=== PATIENT | female | born 1950 | race Caucasian/White ===

== ENCOUNTER → 2020-06-13 10:34 | Outpatient (BNVA) | payer MEDICARE, MEDICAID, SELFPAY | PROVIDERS: PCP Internal Medicine; Visit Provider Orthopaedic Surgery | DX: M17.12 Unilateral primary osteoarthritis, left knee (principal) | CPT/HCPCS: 99202; 99204 ==

== ENCOUNTER 2020-07-25 14:16 | Outpatient (REF) | payer MEDICARE, MEDICAID, SELFPAY ==
[2020-07-25 16:50] LABS: Alanine Aminotransferase 19 U/L (0-31); Alkaline Phosphatase 78 U/L (39-117); Anion Gap 14 (12-20); Aspartate Amino Transferase 23 U/L (5-31); Bilirubin Total 0.9 mg/dL (0.0-1.0); Blood Urea Nitrogen 15 mg/dL (9-16); Calcium 8.9 mg/dL (8.4-10.2); Carbon Dioxide 27 mmol/L (22-29); Chloride 105 mmol/L (96-108); Estimated Glomerular Filt Rate > 60; Glucose Fasting 90 mg/dL (60-99); Potassium 4.6 mmol/l (3.3-5.1); Sodium 141 mmol/L (135-145); Total Protein 7.2 g/dL (6.5-8.0)
== END 2020-07-25 14:17 | disposition home or self-care (01) ==
LOC: HO.HMGCLDS 14:16
PROVIDERS: PCP Internal Medicine; Visit Provider Internal Medicine
DX: E78.9 Disorder of lipoprotein metabolism, unspecified (principal); G56.22 Lesion of ulnar nerve, left upper limb; F41.9 Anxiety disorder, unspecified; E66.09 Other obesity due to excess calories; Z68.32 Body mass index [BMI] 32.0-32.9, adult
CPT/HCPCS: 80053

== ENCOUNTER 2020-08-11 13:00 | Outpatient (RCR) | payer MEDICARE, MEDICAID, SELFPAY ==
--- NOTE | 2020-07-09 12:23 | MHC.PT.EP ---
[facility] [place] [facility] [place] Office [place] Office [address] [phone] F: [phone] F: [phone] F: [phone] F: [phone] Physical Therapy Plan of Care Date of Evaluation: 07/09/20 Date of Surgery: NA Diagnosis: This is a 70 female presenting to skilled PT with a script for unilateral primary OA of L knee Assessment: This is a 70 female presenting to skilled PT with a script for unilateral primary OA of L knee. Her knee has been acting up on and off since the beginning of the year. She does not remember any history of injury to the knee. She has been to ortho who recommended cortisone injection (did not go through with this) and referred to PT. Her pain is located at the anterior aspect of the knee/inferior patella and described as achy and occasional sharpness at times. She reports that she has a hard time with standing too long >10 mins, walking and transfers into standing after sitting for periods of time. Assessment reveals pain of about 2-6/10 with increased use. She demos decreased general L hip and knee ROM, decreased BLE strength and functional tolerance with standing and walking as well as transfers after sitting for prolonged periods. She is a good candidate for skilled PT 2x/wk for 6wks based on functional limitations, pain, age and gross impairments. Frequency and Duration: The patient will be seen 2x/wk for 6wks Short Term Goals: Patient will demo I and compliance with HEP Patient will improve ROM by 5 degs actively Patient will demo proper functional squat without cuing or pain Custodial Goals: Patient will improve LEFs by 5 points Patient will improve pain to no more than 1/10 at the worst Patient will report taking a walk for 10 mins without pain Treatment Plan: Modalities to reduce pain, spasms and effusion. Manual therapy to restore motion and function. Therapeutic exercise to improve strength and flexibility. Neuromuscular re-education for posture and balance. Therapeutic activities to return to functional activities of daily living. Please sign and return to therapist. Thank you for your referral.
--- NOTE | 2020-08-11 14:38 | MHC.PT.DC ---
[facility] [place] Office [place] Office [place] Office [address] [phone] F: [phone] F: [phone] F: [phone] F: [phone] Physical Therapy Discharge Report Diagnosis: This is a 70 female presenting to skilled PT with a script for unilateral primary OA of L knee Date of Surgery: NA Date of Evaluation: 07/09/20 Date of Discharge: Treatments to Date: 9 Cancellations to Date: 0 No Shows to Date: 0 Discharge Status: Discharge Summary: Patient 20 mins late to appointment again. Feeling well and has only occasional mild pain but demos good ROM and strength. At this point she is I in an HEP and ready for DC. She has met her therapy goals. DC to HEP. Electronically signed by: Patito Harmon PT Please sign and return to therapist. Thank you for your referral.
== END 2020-08-21 11:56 | disposition home or self-care (01) ==
LOC: HO.PTCHIC 13:00
PROVIDERS: PCP Internal Medicine; Visit Provider Physician Assistant
DX: M17.12 Unilateral primary osteoarthritis, left knee (principal)
CPT/HCPCS: 97110; 97140; 97161

== ENCOUNTER 2020-10-08 13:09 | Outpatient (REF) | payer MEDICARE, MEDICAID, SELFPAY ==
--- NOTE | 2020-10-08 13:14 | MM_ITS ---
EXAMINATION: MM SCREENING DIGITAL BREAST TOMOSYNTHESIS, BILATERAL CLINICAL INFORMATION: Screening. Asymptomatic. The lifetime risk of breast cancer based on the Tyrer-Cuzick Model is 12%. COMPARISON: Mammography: 10/03/2019, 09/27/2018, 09/06/2017 TECHNIQUE: Digital breast tomosynthesis is performed in both the craniocaudal and mediolateral oblique views along with computer-aided detection (CAD). Synthesized 2D images are generated from the tomosynthesis. Additional right MLO view is provided. FINDINGS: The breasts are almost entirely fatty (ACR BI-RADS breast composition Category a). There are no significant masses, abnormal calcifications, or other abnormalities. Background stromal markings are stable. The axilla and skin contours are unremarkable. MM/MM tomosynthesis screening BI IMPRESSION: No mammographic evidence of malignancy. ASSESSMENT: BI-RADS 1: Negative RECOMMENDATION: Routine annual mammography screening. This patient's information was entered into a reminder system with a target due date for their next mammogram.
== END 2020-10-08 13:10 | disposition home or self-care (01) ==
LOC: HO.MAMMO 13:09
PROVIDERS: PCP Internal Medicine; Visit Provider Internal Medicine
DX: Z12.31 Encounter for screening mammogram for malignant neoplasm of breast (principal)
CPT/HCPCS: 77063; 77067

== ENCOUNTER 2021-01-14 13:57 | Outpatient (REF) | payer MEDICARE, MEDICAID, SELFPAY ==
[2021-01-14 17:00] LABS: Alanine Aminotransferase 12 U/L (0-31); Alkaline Phosphatase 80 U/L (39-117); Anion Gap 15 (12-20); Aspartate Amino Transferase 19 U/L (5-31); Blood Urea Nitrogen 19 mg/dL (9-16); Carbon Dioxide 25 mmol/L (22-29); Chloride 106 mmol/L (96-108); Estimated Glomerular Filt Rate 55; Glucose Random 118 mg/dL (60-115); Potassium 4.1 mmol/L (3.3-5.1); Sodium 142 mmol/L (135-145); Total Protein 6.9 g/dL (6.5-8.0)
== END 2021-01-14 13:58 | disposition home or self-care (01) ==
LOC: HO.HMGCLDS 13:57
PROVIDERS: PCP Internal Medicine; Visit Provider Internal Medicine
DX: E78.9 Disorder of lipoprotein metabolism, unspecified (principal); G56.22 Lesion of ulnar nerve, left upper limb
CPT/HCPCS: 36415; 80053

== ENCOUNTER 2021-03-31 10:15 | Outpatient (REF) | payer MEDICARE, MEDICAID, SELFPAY ==
[2021-04-02 22:15] LABS: HPV mRNA E6/E7 rflx Not Detected (Not Detected)
== END 2021-03-31 10:16 | disposition home or self-care (01) ==
LOC: HO.LAB 10:15
PROVIDERS: PCP Internal Medicine; Visit Provider Advanced Practice Midwife
DX: Z01.419 Encounter for gynecological examination (general) (routine) without abnormal findings (principal); Z11.51 Encounter for screening for human papillomavirus (HPV)
CPT/HCPCS: 87624; 88142

== ENCOUNTER 2021-08-11 10:53 | Outpatient (REF) | payer MEDICARE, MEDICAID, SELFPAY ==
[2021-08-11 14:41] LABS: Alanine Aminotransferase 15 U/L (0-31); Albumin Level 3.9 g/dL (3.5-5.0); Alkaline Phosphatase 78 U/L (39-117); Anion Gap 13 (12-20); Aspartate Amino Transferase 19 U/L (5-31); Bilirubin Direct 0.2 mg/dL (0.0-0.5); Bilirubin Total 0.7 mg/dL (0.0-1.0); Blood Urea Nitrogen 14 mg/dL (9-16); Calcium 9.4 mg/dL (8.4-10.2); Carbon Dioxide 25 mmol/L (22-29); Chloride 106 mmol/L (96-108); Estimated Glomerular Filt Rate 58; Glucose Fasting 109 mg/dL (60-99); Sodium 139 mmol/L (135-145); Total Protein 6.9 g/dL (6.5-8.0)
== END 2021-08-11 10:54 | disposition home or self-care (01) ==
LOC: HO.HMGCLDS 10:53
PROVIDERS: PCP Internal Medicine; Visit Provider Internal Medicine
DX: E78.9 Disorder of lipoprotein metabolism, unspecified (principal); F41.1 Generalized anxiety disorder; G56.22 Lesion of ulnar nerve, left upper limb
CPT/HCPCS: 36415; 80053; 80076; 82248

== ENCOUNTER 2022-01-29 09:15 | Outpatient (REF) | payer MEDICARE, MEDICAID, SELFPAY ==
[2022-01-29 11:45] LABS: Alanine Aminotransferase 14 U/L (0-31); Alkaline Phosphatase 78 U/L (39-117); Anion Gap 11 (12-20); Aspartate Amino Transferase 17 U/L (5-31); Bilirubin Total 0.5 mg/dL (0.0-1.0); Blood Urea Nitrogen 13 mg/dL (9-16); Calcium 9.6 mg/dL (8.4-10.2); Carbon Dioxide 29 mmol/L (22-29); Chloride 104 mmol/L (96-108); Cholesterol 217 mg/dL; Estimated Glomerular Filt Rate 58; Glucose Fasting 107 mg/dL (60-99); HDL Cholesterol 44 mg/dL; LDL Cholesterol Calculated 130 mg/dl; Potassium 4.7 mmol/L (3.3-5.1); Sodium 139 mmol/L (135-145); Triglycerides 218 mg/dL
== END 2022-01-29 09:16 | disposition home or self-care (01) ==
LOC: HO.HMGCLDS 09:15
PROVIDERS: Visit Provider Internal Medicine
DX: E78.9 Disorder of lipoprotein metabolism, unspecified (principal); F41.1 Generalized anxiety disorder; G56.22 Lesion of ulnar nerve, left upper limb; E66.09 Other obesity due to excess calories
CPT/HCPCS: 36415; 80053; 80061

== ENCOUNTER 2022-07-09 13:00 | Outpatient (RCR) | payer MEDICARE, MEDICAID, SELFPAY ==
--- NOTE | 2022-06-02 14:52 | MHC.PT.EP ---
[facility] [place] Office [place] Office [place] Office [address] [phone] F: [phone] F: [phone] F: [phone] F: [phone] Physical Therapy Plan of Care Date of Evaluation: Date of Surgery: none Diagnosis: Left knee OA Assessment: Patient is a 72 year old R handed female who presents with s/s consistent with Left knee OA/pain. She does not work but does take care of grandkids. Patient past medical history is fairly unremarkable. Current impairments include pain, balance, ROM, strength, activity tolerance and functional mobility. Functional limitations include decreased ability to kneel, walk long distances, negotiate stairs and transfer. Patient is motivated with good rehab potential. Skilled PT will address impairments and functional limitations in order to achieve goals. Frequency and Duration: The patient will be seen 2x/week for 4 weeks Short Term Goals: I with HEP - 2 weeks AAROM to 128 - 2 weeks Senior Devops Engineer Goals: AROM 130 - 4 weeks Strength grossly 4+/5 - 4 weeks LEFS improved by 8 pts - 4 weeks SLB > 8 seconds - 4 weeks Treatment Plan: Modalities to reduce pain, spasms and effusion. Manual therapy to restore motion and function. Therapeutic exercise to improve strength and flexibility. Neuromuscular re-education for posture and balance. Therapeutic activities to return to functional activities of daily living. Electronically signed by: Jose Luis Negro, PT Please sign and return to therapist. Thank you for your referral.
--- NOTE | 2022-08-24 11:54 | MHC.PT.DC ---
[facility] [place] Office [place] Office [place] Office [address] [phone] F: [phone] F: [phone] F: [phone] F: [phone] Physical Therapy Discharge Report Diagnosis: Left knee OA Date of Surgery: none Date of Evaluation: 06/02/22 Date of Discharge: 08/24/22 Treatments to Date: 10 Cancellations to Date: No Shows to Date: Discharge Status: Improved Function Independent with HEP Discharge Summary: 07/09/22: pt has been feeling better overall and progressively more I with HEP. We did update issued HEP. AAROM flexion is 129. Strength is 4+/5. SLB > 8 seconds b/l. She is appropriate to d/c to HEP at this time. 07/05/22: pt with little to know pain. she did report a fall on a stair since last visit but after assessment, no cause for concern. d/c to HEP NV. 06/30; Pt needs v/c with exs. Pt reported doing the exs sometimes. 2 v before DC 06/28/22: we added the shuttle today with good response. continue to progress strength as tolerated. 06/23;Pt needs v/c with exs. Pt challenged with balance exs. Knee ROM WNL. 06/17; Pt reported feeling good after exs. Challenged with balance exs NV foam with balance. 06/14/22: pt progressing well each day. minimal ant knee pain on L. otherwise, no adverse reactions as we increased stair height to 8 06/09/22: pt progressing well. increased standing activities today. no adverse reactions. continue to progress as tolerated. 06/07/22: progressed pt with strength and stretching. no adverse reactions. notes compliance with HEP. Patient is a 72 year old R handed female who presents with s/s consistent with Left knee OA/pain. She does not work but does take care of grandkids. Patient past medical history is fairly unremarkable. Current impairments include pain, balance, ROM, strength, activity tolerance and functional mobility. Functional limitations include decreased ability to kneel, walk long distances, negotiate stairs and transfer. Patient is motivated with good rehab potential. Skilled PT will address impairments and functional limitations in order to achieve goals. Electronically signed by: Jose Luis Negro, PT Please sign and return to therapist. Thank you for your referral.
== END 2022-08-24 11:55 | disposition home or self-care (01) ==
LOC: HO.PTCHIC 13:00
PROVIDERS: PCP Internal Medicine; Visit Provider Internal Medicine
DX: M17.12 Unilateral primary osteoarthritis, left knee (principal); M25.511 Pain in right shoulder
CPT/HCPCS: 97110; 97112; 97161; 97530

== ENCOUNTER 2022-11-08 11:07 | Outpatient (REF) | payer MEDICARE, MEDICAID, SELFPAY ==
[2022-11-08 14:16] LABS: MANUAL DIFF FLAG NO
[2022-11-08 14:23] LABS: Basophils Percent Auto 0.3 % (0-2); Eosinophils Absolute Auto 0.2 X10*3/uL (0.0-0.4); Eosinophils Percent Auto 2.3 % (0-4); Hemoglobin 14.8 g/dl (12.0-16.0); Imm Gran Abs Auto 0.04 X10*3/uL (0.00-0.03); Imm Gran Pct Auto 0.4 % (0.0-0.4); Lymphocytes Absolute Auto 2.7 X10*3/uL (1.2-4.9); Lymphocytes Percent Auto 26.6 % (20-40); Mean Corpuscular HGB Conc 32.9 g/dl (31.0-35.0); Mean Corpuscular Hemoglobin 30.9 pg (27.0-33.0); Mean Corpuscular Volume 93.9 fL (80.0-98.0); Mean Platelet Volume 11.1 fL (9.4-12.3); Monocytes Absolute Auto 0.7 X10*3/uL (0.1-1.2); Monocytes Percent Auto 7.2 % (2-11); Neutrophils Absolute Auto 6.4 x10*3/uL (2.0-8.3); Neutrophils Percent Auto 63.2 % (45-73); Platelet Count 276 X10*3/uL (160-400); Red Blood Count 4.79 X10*6/uL (4.20-5.50); Red Cell Distribution Width 12.9 % (11.0-16.0); White Blood Count 10.1 X10*3/uL (4.8-10.8)
[2022-11-08 14:45] LABS: Estimated Average Glucose 123 mg/dL; Hemoglobin A1c % 5.9 %
[2022-11-08 14:57] LABS: Alanine Aminotransferase 17 U/L (0-31); Alkaline Phosphatase 77 U/L (39-117); Anion Gap 10 (12-20); Aspartate Amino Transferase 20 U/L (5-31); Bilirubin Total 0.9 mg/dL (0.0-1.0); Blood Urea Nitrogen 15 mg/dL (9-16); Calcium 9.7 mg/dL (8.4-10.2); Carbon Dioxide 31 mmol/L (22-29); Chloride 105 mmol/L (96-108); Cholesterol 224 mg/dL; Estimated Glomerular Filt Rate > 60; Glucose Fasting 98 mg/dL (60-99); HDL Cholesterol 49 mg/dL; LDL Cholesterol Calculated 139 mg/dl; Potassium 4.5 mmol/L (3.3-5.1); Sodium 141 mmol/L (135-145); Total Protein 6.9 g/dL (6.5-8.0); Triglycerides 181 mg/dL
== END 2022-11-08 11:08 | disposition home or self-care (01) ==
LOC: HO.HMGCLDS 11:07
PROVIDERS: Visit Provider Internal Medicine
DX: E66.09 Other obesity due to excess calories (principal); G56.22 Lesion of ulnar nerve, left upper limb; E78.9 Disorder of lipoprotein metabolism, unspecified; F41.1 Generalized anxiety disorder; R21 Rash and other nonspecific skin eruption; M17.12 Unilateral primary osteoarthritis, left knee; R73.01 Impaired fasting glucose
CPT/HCPCS: 36415; 80053; 80061; 83036; 85025

== ENCOUNTER 2022-12-08 11:22 | Outpatient (REF) | payer MEDICARE, MEDICAID, SELFPAY ==
--- NOTE | ~2022-12-08 | MM_ITS ---
EXAMINATION: MM SCREENING DIGITAL BREAST TOMOSYNTHESIS, BILATERAL CLINICAL INFORMATION: Screening. Asymptomatic. The lifetime risk of breast cancer based on the Tyrer-Cuzick Model is 11%. COMPARISON: Prior mammography exams, most recent 10/08/2020 TECHNIQUE: Digital breast tomosynthesis is performed in both the craniocaudal and mediolateral oblique views along with computer-aided detection (CAD). Synthesized 2D images are generated from the tomosynthesis. Additional left MLO view is provided. FINDINGS: The breasts are almost entirely fatty (ACR BI-RADS breast composition Category a). There are no significant masses, abnormal calcifications, or other abnormalities. No architectural abnormality or developing density or significant change from prior studies. The axilla are unremarkable. Skin contours are smooth. MM/MM tomosynthesis screening BI IMPRESSION: No mammographic evidence of malignancy. ASSESSMENT: BI-RADS 1: Negative RECOMMENDATION: Routine annual mammography screening. This patient's information was entered into a reminder system with a target due date for their next mammogram.
== END 2022-12-08 11:23 | disposition home or self-care (01) ==
LOC: HO.MAMMO 11:22
PROVIDERS: Visit Provider Internal Medicine
DX: Z12.31 Encounter for screening mammogram for malignant neoplasm of breast (principal)
CPT/HCPCS: 77063; 77067

== ENCOUNTER 2023-04-23 11:59 | Outpatient (AMB) | payer MEDICARE, MEDICAID, SELFPAY ==
--- NOTE | 2023-04-23 13:24 | AM.OFFWIN_ITS ---
Intake Vital Signs 04/23/23 13:25 Height 5 ft BP 128/76 Blood Pressure Location Lt brachial Position Sitting Pulse 78 Pulse Source Pulse Oximeter Temp 97.9 F Temp Source Temporal Artery Scan Pulse Oximetry (%) 97 Oxygen Delivery Method Room Air Intake Visit Reasons: EST/cough for around a week Intake Note: pt is here for c/o cough for a week Patient Tobacco Use Status: Never used Tobacco Allergies Penicillins [PENICILLINS] Allergy (Unknown, Verified 04/23/23 13:25) RASH Do you need a note to return to daycare/school/sports/work: No HPI EST/cough for around a week HPI Details Patient is a 72-year-old female comes to the walk-in clinic complaining of a cough for week. She states that she had some postnasal drip, but no fever chills, runny nose, shortness of breath or chest pain, chest congestion, nausea vomiting diarrhea, headache or dizziness, malaise myalgias, or other significant associated symptoms. No reported sick contacts. She did not check for COVID. No underlying immuno compromising issues [facility] Medical History Arthritis of knee, right Hematuria, microscopic Lesion of ulnar nerve, left upper limb Lipid disorder Surgical History H/O section History of elbow surgery Family History Father No problems noted. Mother Diabetes Breast CA Social History Housing: Condominium Alcohol intake: never Patient Tobacco Use Status: Never used Tobacco e-Cigarette/Vaping Use: Never Used service: No Current occupational status: retired Cognitive needs: No Hearing needs: No Vision needs: No Review of Systems Const All systems reviewed & are unremarkable except as noted in HPI and below Physical Exam Vital Signs: Last Vital Signs Temp 97.9 F 04/23/23 13:25 Pulse 78 04/23/23 13:25 BP 128/76 04/23/23 13:25 Pulse Ox 97 04/23/23 13:25 Oxygen Delivery Method Room Air 04/23/23 13:25 Const General: cooperative, comfortable, no acute distress, alert, awake, Physically active and well groomed; No anxious, diaphoretic, ill appearing, intoxicated appearing, poor hygiene or tired appearing Orientation/consciousness: patient oriented x3 Limitations: no limitations HEENT Head: Yes normal to inspection, Yes normocephalic and Yes atraumatic Ears: hearing grossly normal bilaterally, external ears normal, EAC's normal and TM abnormal (Injected right TM) dull, erythematous, with fluid behind the TM and with loss of landmarks Face and sinus: Yes normal facial exam, Yes sinuses nontender and Yes face symmetric Mouth: Normal oral and palatal mucosa present, lip normal and tongue normal Throat: Yes posterior oropharynx normal, No peritonsillar mass, No uvular edema and No cobblestoning Neck Neck: Yes normal visual inspection, Yes no lymphadenopathy, Yes trachea midline, Yes supple and No anterior neck swelling Resp Effort & Inspection: normal respiratory effort, able to speak in complete sentences, no audible wheezes, no cough, no grunting, not labored, no nasal flaring, no retractions and symmetric chest movement Auscultation: clear to auscultation bilaterally, no crackles, no rales, no rhonchi, no wheezes, lung sounds not diminished and No rub present Cardio Rate: regular rate Rhythm: regular rhythm Skin Other: Good color, warm and dry Neuro General: patient oriented x3 Psych Appearance: grossly normal Mental Status: mental status grossly normal Speech and movement: Normal speech and movement present Affect: normal affect Attitude: cooperative Thought process: Normal thought process present Insight: Good insight present (Psych) Judgement: Good judgement present (Psych) Assessment & Plan Assessment & Plan (1) Otitis media: Code(s): H66.90 - Otitis media, unspecified, unspecified ear Qualifiers: Chronicity: acute Laterality: right Otitis media type: suppurative Recurrence: non-recurrent Plan: Patient with right otitis media from likely underlying upper respiratory infection from a virus. Pending rapid COVID testing, no PCR testing available. I wrote her for a course of doxycycline as she is penicillin allergic. She can also trial fluticasone nasal spray to help with the drainage. She should follow up if symptoms persist or worsen Orders: Orders [facility] Covid-19 04/23/23 Z20.822 - Contact with and (suspected) exposure to COVID-19 Medications: New doxycycline hyclate 100 mg PO BID 7 days 14 tabs 0RF Coding Level of Care Code Est Pt Level 4 (92350) Diagnoses Otitis media H66.90 Chronicity: acute Laterality: right Otitis media type: suppurative Recurrence: non-recurrent
[2023-04-23 13:25] VITALS: BP 128/76; PULSE 78; TEMP 36.6; O2SAT 97
== END 2023-04-23 14:27 | disposition home or self-care (01) ==
PROVIDERS: PCP Internal Medicine; Visit Provider Physician Assistant Medical
DX: H66.90 Otitis media, unspecified, unspecified ear (principal)
CPT/HCPCS: 99214

== ENCOUNTER 2023-04-23 14:06 | Outpatient (REF) | payer MEDICARE, SELFPAY ==
[2023-04-23 14:29] LABS: Binax Internal Control QC Valid; Binax Lot number: 21923; Binax Now Covid-19 Ag Negative (Negative); Binax Performed by: HO.BONILM
== END 2023-04-23 14:07 | disposition home or self-care (01) ==
LOC: HO.HMGCLDS 14:06
PROVIDERS: PCP Internal Medicine; Visit Provider Physician Assistant Medical
DX: Z20.822 Contact with and (suspected) exposure to COVID-19 (principal)
CPT/HCPCS: 87811; C9803

== ENCOUNTER 2023-05-13 12:03 | Outpatient (AMB) | payer MEDICARE, SELFPAY ==
[2023-05-13 12:11] VITALS: BP 128/74; PULSE 75; O2SAT 96; BMI 32.7
--- NOTE | 2023-05-13 12:11 | MHC.PC.OV ---
Vital Signs 05/13/23 12:11 Height 5 ft Weight 167 lb 8 oz BMI 32.7 BP 128/74 Blood Pressure Location Rt brachial Position Sitting Pulse 75 Pulse Source Pulse Oximeter Pulse Oximetry (%) 96 Oxygen Delivery Method Room Air Intake Visit Reasons: 6 month follow up Allergies Penicillins [PENICILLINS] Allergy (Unknown, Verified 05/13/23 12:12) RASH Medication List - Last Reconciled 05/13/23 by Maximiliano Garcia MD gabapentin 100 mg PO DAILY 90 days glucosamine sulfate (Glucosamine) 500 mg PO DAILY naproxen (EC-Naproxen) 500 mg PO BID PRN 10 days simvastatin 40 mg PO BEDTIME 90 days Tobacco use date assessed: 05/13/23 Fall risk assessment: 2 + Falls in past year Last assessed Fall Risk: 05/13/23 Dental Screening Dental Screen Date: 05/13/23 Did you have a dental visit in the last 12 months?: Yes Did you have a dental problem in the last 6 months where you did not have access to dental care?: No Was dental information given to patient?: No HPI 6 month follow up HPI Details Patient is a 73-year-old female came in today for her follow-up visit Patient fell 2 days ago on her left knee, she already have osteoarthritis both knees and now it is swollen and painful to walk on She also have a large area of ecchymosis above the knee around her thigh. I am ordering x-ray for the patient She may continue taking naproxen with 1 Tylenol in the morning Patient also have varicosities both legs She will return next week for follow-up appointment ? Lipid disorder: Patient is on simvastatin 40 mg once a day, labs are due, patient is tolerating medications no side effects ? Patient also takes a gabapentin 100 mg at night which was started for lesion of ulna nerve left elbow 2 times a day however patient is now taking it only at night which is helping her with anxiety as well as with nerve pain. BMI is is elevated patient need to lose weight Impaired fasting sugar, control diet PFSH Medical History Arthritis of knee, right Hematuria, microscopic Lesion of ulnar nerve, left upper limb Lipid disorder Surgical History H/O section History of elbow surgery Family History Father No problems noted. Mother Diabetes Breast CA Social History Housing: Condominium Alcohol intake: never Patient Tobacco Use Status: Never used Tobacco e-Cigarette/Vaping Use: Never Used service: No Current occupational status: retired Cognitive needs: No Hearing needs: No Vision needs: No Questionnaire PHQ-9 Over the last 2 weeks, how often have you been bothered by any of the following problems? 1. Little interest or pleasure in doing things: not at all 2. Feeling down, depressed, or hopeless: not at all 3. Trouble falling or staying asleep, or sleeping too much: not at all 4. Feeling tired or having little energy: not at all 5. Poor appetite or overeating: not at all 6. Feeling bad about yourself - or that you are a failure or have let yourself or your family down: not at all 7. Trouble concentrating on things, such as reading the newspaper or watching television: not at all 8. Moving or speaking so slowly that other people could have noticed. Or the opposite - being so fidgety or restless that you have been moving around a lot more than usual: not at all 9. Thoughts that you would be better off or of hurting yourself in some way: not at all Total score: 0 Depression Screening Interpretation: Negative 89015 - PHQ-9 Billing: Yes Source: Developed by Drs. Stone Mccain, Isamar Rayo, Kimani Garcia and colleagues, with an educational marycarmen from [employer]. Thrive Questionnaire Date Thrive assessed: 05/13/23 I am a: Patient What is your living situation today?: I have a steady place to live Within the past 12 months, did the food you bought not last and you didn't have the money to get more?: Sometimes True Within the past 12 months, did you worry whether your food would run out before you got money to buy more?: Sometimes True Do you have trouble paying for medicines?: No Do you have trouble getting transportation to medical appointments?: No Do you have trouble paying your heating and electricity bill?: No Do you have trouble taking care of your child, family member or friend?: No Do you have trouble with day-to-day activities such as bathing, preparing meals, shopping, managing finances, etc.?: No Are you currently unemployed and looking for a job?: No Are you interested in more education?: No Please select the resources that you would like help with: Food, Utilities and Daily support AUDIT C Alcohol Use Questionnaire (AUDIT-C) 1. How often do you have a drink containing alcohol?: Never 3. How often do you have six or more drinks on one occasion?: Never Total Score: 0 Score Reviewed/Action Taken: Yes KAILEE-7 AMB Questionnaire KAILEE-7 Date KAILEE - 7 assessed: 05/13/23 Feeling nervous, anxious, or on edge: 0 = Not at all Not being able to stop or control worryin = Not at all Worrying too much about different things: 2 = More than half the days Trouble relaxin = Not at all Being so restless that it is hard to sit still: 0 = Not at all Becoming easily annoyed or irritable: 0 = Not at all Feeling afraid as if something awful might happen: 0 = Not at all Total KAILEE-7 score (0-4 normal; 5-9 mild; 10-14 moderate; 15-21 severe): 2 Source: Developed by Drs. Stone Mccain, Isamar Rayo, Kimani Garcia and colleagues, with an educational marycarmen from [employer]. KAILEE-7 Assessment Billing KAILEE-7 Assessment Tool: KAILEE-7 Assessment 73687 Review of Systems Const Denies chills and Denies fever(s) ENT Denies epistaxis and Denies nasal discharge Card Denies chest pain Resp Denies chest congestion, Denies cough and Denies hemoptysis GI Denies diarrhea and Denies nausea Skin/Breast Denies rash Neuro Reports no additional complaints Psych Reports no additional complaints Endo Reports no additional complaints Physical exam (Primary Care) Vital Signs: Last Vital Signs Pulse 75 05/13/23 12:11 BP 128/74 05/13/23 12:11 Pulse Ox 96 05/13/23 12:11 Oxygen Delivery Method Room Air 05/13/23 12:11 BMI result Body Mass Index 32.7 Tobacco/Smoking Status: Tobacco use Status Tobacco use date assessed 05/13/23 05/13/23 12:14 Patient Tobacco Use Status Never used Tobacco 05/13/23 12:14 e-Cigarette/Vaping Use Never Used 05/13/23 12:14 PHQ-9: PHQ-9 Score PHQ-9: Total score 0 05/13/23 12:39 Depression Screening Interpretation: Negative Thrive Assessment: Date of Thrive Assessment Date Thrive assessed 05/13/23 05/13/23 12:39 Const General: cooperative, comfortable and no acute distress Orientation/consciousness: patient oriented x3 HENMT Head: Yes normocephalic Eyes General: appearance normal, both eyes and all related structures Neck Neck: Yes supple Resp Effort & Inspection: normal respiratory effort, no cough and no stridor Cardio Rhythm: regular rhythm Heart sounds: S1 normal heart sound present and S2 normal heart sound present Skin General skin exam: turgor normal Neuro General: patient oriented x3, tone normal and moves all extremities Extrem Elbow/forearm/wrist images: 1. Diffuse swelling range of motion limited because of pain no inflammation no erythema no skin injury 2. Large area of ecchymosis Right lower extremity: no edema Left lower extremity: no edema Assessment and Plan Assessment & Plan (1) Fall: Code(s): W19.XXXA - Unspecified fall, initial encounter (2) Traumatic ecchymosis of left thigh: Code(s): S70.12XA - Contusion of left thigh, initial encounter (3) Injury of left knee: Code(s): S89.92XA - Unspecified injury of left lower leg, initial encounter (4) Swelling of left knee joint: Code(s): M25.462 - Effusion, left knee (5) Pain in left knee: Code(s): M25.562 - Pain in left knee (6) Lipid disorder: Code(s): E78.9 - Disorder of lipoprotein metabolism, unspecified (7) Lesion of ulnar nerve, left upper limb: Code(s): G56.22 - Lesion of ulnar nerve, left upper limb (8) Varicose veins of lower extremity: Code(s): I83.90 - Asymptomatic varicose veins of unspecified lower extremity (9) Obesity due to excess calories: Code(s): E66.09 - Other obesity due to excess calories (10) Anxiety, generalized: Code(s): F41.1 - Generalized anxiety disorder (11) Impaired fasting blood sugar: Code(s): R73.01 - Impaired fasting glucose (12) Osteoarthritis involving multiple joints on both sides of body: Code(s): M15.9 - Polyosteoarthritis, unspecified Plan Patient is a 73-year-old female came in today for her follow-up visit Patient fell 2 days ago on her left knee, she already have osteoarthritis both knees and now it is swollen and painful to walk on She also have a large area of ecchymosis above the knee around her thigh. I am ordering x-ray for the patient She may continue taking naproxen with 1 Tylenol in the morning Patient also have varicosities both legs She will return next week for follow-up appointment ? Lipid disorder: Patient is on simvastatin 40 mg once a day, labs are due, patient is tolerating medications no side effects ? Patient also takes a gabapentin 100 mg at night which was started for lesion of ulna nerve left elbow 2 times a day however patient is now taking it only at night which is helping her with anxiety as well as with nerve pain. BMI is is elevated patient need to lose weight Impaired fasting sugar, control diet Orders: Orders Comprehensive Met. Panel Today E66.09 - Other obesity due to excess calories, E78.9 - Disorder of lipoprotein metabolism, unspecified, F41.1 - Generalized anxiety disorder, G56.22 - Lesion of ulnar nerve, left upper limb, M15.9 - Polyosteoarthritis, unspecified, R73.01 - Impaired fasting glucose LDL Cholesterol Direct Today E66.09 - Other obesity due to excess calories, E78.9 - Disorder of lipoprotein metabolism, unspecified, F41.1 - Generalized anxiety disorder, G56.22 - Lesion of ulnar nerve, left upper limb, M15.9 - Polyosteoarthritis, unspecified, R73.01 - Impaired fasting glucose Hemoglobin A1c Today R73.01 - Impaired fasting glucose Medications: Refilled naproxen (EC-Naproxen) 500 mg PO BID 10 days PRN 20 tabs 0RF pain M17.11 - Unilateral primary osteoarthritis, right knee simvastatin 40 mg PO BEDTIME 90 tabs 0RF 90 days naproxen (EC-Naproxen) 500 mg PO BID PRN 20 tabs 0RF pain 10 days M17.11 - Unilateral primary osteoarthritis, right knee gabapentin 100 mg PO DAILY 90 caps 0RF 90 days G56.22 - Lesion of ulnar nerve, left upper limb Coding Level of Care Code Est Pt Level 5 (28293) Diagnoses Fall W19.XXXA Traumatic ecchymosis of left thigh S70.12XA Injury of left knee S89.92XA Swelling of left knee joint M25.462 Pain in left knee M25.562 Lipid disorder E78.9 Lesion of ulnar nerve, left upper limb G56.22 Varicose veins of lower extremity I83.90 Obesity due to excess calories E66.09 Anxiety, generalized F41.1 Impaired fasting blood sugar R73.01 Osteoarthritis involving multiple joints on both sides of body M15.9 Additional Codes KAILEE-7 Assessment Billing - KAILEE-7 Assessment Tool: KAILEE-7 Assessment 39643 ([id number]) Time Spent (min) 45 Comment 8 preparation, 20 with patient, 18 charting / coordination of care
== END 2023-05-13 12:32 | disposition home or self-care (01) ==
PROVIDERS: PCP Internal Medicine; Visit Provider Internal Medicine
DX: S70.12XA Contusion of left thigh, initial encounter (principal); W19.XXXA Unspecified fall, initial encounter; S89.92XA Unspecified injury of left lower leg, initial encounter; M25.462 Effusion, left knee; M25.562 Pain in left knee; E78.9 Disorder of lipoprotein metabolism, unspecified; G56.22 Lesion of ulnar nerve, left upper limb; I83.90 Asymptomatic varicose veins of unspecified lower extremity; E66.09 Other obesity due to excess calories; F41.1 Generalized anxiety disorder; R73.01 Impaired fasting glucose; M15.9 Polyosteoarthritis, unspecified
CPT/HCPCS: 99215

== ENCOUNTER 2023-05-13 12:35 | Outpatient (REF) | payer MEDICARE, SELFPAY ==
--- NOTE | ~2023-05-13 | XR_ITS ---
EXAMINATION: XR KNEE, LEFT CLINICAL INFORMATION: Injury COMPARISON: Left knee radiograph from 05/28/2020 TECHNIQUE: Four views of the left knee. FINDINGS: No acute visible fracture or dislocation. Mild multicompartment arthritic changes. Mild to moderate narrowing of the medial femorotibial compartment. Periarticular osteophyte along the superior inferior margins of the patella. Joint spaces and alignment are otherwise maintained. Small knee joint effusion. Suprapatellar soft tissue prominence. XR/XR knee LT 4V IMPRESSION: 1. No acute visible fracture or dislocation. 2. Mild multicompartment arthritic changes. 3. Small knee joint effusion. 4. Suprapatellar soft tissue prominence.
[2023-05-13 16:32] LABS: Estimated Average Glucose 114 mg/dL; Hemoglobin A1c % 5.6 % (<6.0)
[2023-05-13 16:45] LABS: Alanine Aminotransferase 16 U/L (0-31); Alkaline Phosphatase 67 U/L (39-117); Anion Gap 16 (12-20); Aspartate Amino Transferase 20 U/L (5-31); Bilirubin Total 0.7 mg/dL (0.0-1.0); Blood Urea Nitrogen 14 mg/dL (9-16); Calcium 9.6 mg/dL (8.4-10.2); Carbon Dioxide 25 mmol/L (22-29); Chloride 104 mmol/L (96-108); Estimated Glomerular Filt Rate > 60; Glucose Random 95 mg/dL (60-115); Potassium 4.7 mmol/L (3.3-5.1); Sodium 140 mmol/L (135-145)
[2023-05-15 10:44] LABS: LDL Cholesterol Direct 119 mg/dL (<100)
== END 2023-05-13 12:36 | disposition home or self-care (01) ==
LOC: HO.HMGCX 12:35
PROVIDERS: PCP Internal Medicine; Visit Provider Internal Medicine
DX: E66.09 Other obesity due to excess calories (principal); E78.9 Disorder of lipoprotein metabolism, unspecified; F41.1 Generalized anxiety disorder; G56.22 Lesion of ulnar nerve, left upper limb; M15.9 Polyosteoarthritis, unspecified; R73.01 Impaired fasting glucose
CPT/HCPCS: 36415; 73564; 80053; 83036; 83721

== ENCOUNTER 2023-05-20 13:27 | Outpatient (AMB) | payer MEDICARE, SELFPAY ==
[2023-05-20 13:36] VITALS: BP 122/68; PULSE 79; O2SAT 94; BMI 33.1
--- NOTE | 2023-05-20 13:36 | A.OFFPC_ITS ---
Vital Signs 3 05/20/23 13:36 Height 5 ft Weight 169 lb 4 oz BMI 33.1 BP 122/68 Blood Pressure Location Rt brachial Position Sitting Pulse 79 Pulse Source Pulse Oximeter Pulse Oximetry (%) 94 Oxygen Delivery Method Room Air Intake Visit Reasons: RT Knee pain Allergies Penicillins [PENICILLINS] Allergy (Unknown, Verified 05/20/23 13:38) RASH Medication List - Last Reconciled 05/20/23 by Maximiliano Garcia MD gabapentin 100 mg PO DAILY 90 days glucosamine sulfate (Glucosamine) 500 mg PO DAILY naproxen (EC-Naproxen) 500 mg PO BID PRN 10 days simvastatin 40 mg PO BEDTIME 90 days Tobacco use date assessed: 05/20/23 Fall risk assessment: 2 + Falls in past year Last assessed Fall Risk: 05/20/23 Dental Screening Dental Screen Date: 05/20/23 Did you have a dental visit in the last 12 months?: No Did you have a dental problem in the last 6 months where you did not have access to dental care?: No Was dental information given to patient?: No HPI RT Knee pain 2 HPI0 Details Patient came in today to have a follow-up appointment on her left knee Patient had an accident and she fell she had swelling and ecchymosis last visit X-ray did not show any fractures but there was some joint effusion She is taking ibuprofen 2 times a day [id number] and is feeling much better There is no more pain she can walk without discomfort. Ecchymoses is getting better. [facility] Medical History Arthritis of knee, right Hematuria, microscopic Lesion of ulnar nerve, left upper limb Lipid disorder Surgical History H/O section History of elbow surgery Family History Father No problems noted. Mother Diabetes Breast CA Social History Housing: Condominium Alcohol intake: never Patient Tobacco Use Status: Never used Tobacco e-Cigarette/Vaping Use: Never Used service: No Current occupational status: retired Cognitive needs: No Hearing needs: No Vision needs: No Questionnaire Thrive Questionnaire Date Thrive assessed: 05/13/23 AUDIT C Alcohol Use Questionnaire (AUDIT-C) 1. How often do you have a drink containing alcohol?: Never 3. How often do you have six or more drinks on one occasion?: Never Total Score: 0 Score Reviewed/Action Taken: Yes KAILEE-7 AMB Questionnaire KAILEE-7 Date KAILEE - 7 assessed: 05/13/23 Source: Developed by Drs. Stone Mccain, Isamar Rayo, Kimani Garcia and colleagues, with an educational marycarmen from [employer]. Review of Systems Const All systems reviewed & are unremarkable except as noted in HPI and below Physical exam (Primary Care) Vital Signs: Last Vital Signs Pulse 79 05/20/23 13:36 BP 122/68 05/20/23 13:36 Pulse Ox 94 05/20/23 13:36 Oxygen Delivery Method Room Air 05/20/23 13:36 BMI result Body Mass Index 33.1 Tobacco/Smoking Status: Tobacco use Status Tobacco use date assessed 05/20/23 05/20/23 13:39 Patient Tobacco Use Status Never used Tobacco 05/20/23 13:39 e-Cigarette/Vaping Use Never Used 05/20/23 13:39 Thrive Assessment: Date of Thrive Assessment Date Thrive assessed 05/13/23 05/20/23 13:39 Const General: no acute distress Orientation/consciousness: patient oriented x3 Eyes General: appearance normal, both eyes and all related structures Resp Effort & Inspection: normal respiratory effort and able to speak in complete sentences Auscultation: clear to auscultation bilaterally Neuro General: patient oriented x3 Extrem Elbow/forearm/wrist images: 2 1. Swelling has improved compared to right knee range of motion intact 2. Ecchymosis improving Psych Mental Status: mental status grossly normal Assessment and Plan Assessment & Plan (1) Traumatic ecchymosis of left thigh: Code(s): S70.12XA - Contusion of left thigh, initial encounter Qualifiers: Encounter type: subsequent encounter Qualified Code(s): S70.12XD - Contusion of left thigh, subsequent encounter (2) Swelling of left knee joint: Code(s): M25.462 - Effusion, left knee Plan Patient came in today to have a follow-up appointment on her left knee Patient had an accident and she fell she had swelling and ecchymosis last visit X-ray did not show any fractures but there was some joint effusion She is taking ibuprofen 2 times a day [id number] and is feeling much better There is no more pain she can walk without discomfort. Ecchymoses is getting better. Coding Level of Care Code Est Pt Level 3 (90529) Diagnoses Traumatic ecchymosis of left thigh, subsequent encounter S70.12XD Encounter type: subsequent encounter Swelling of left knee joint M25.462
== END 2023-05-20 13:50 | disposition home or self-care (01) ==
PROVIDERS: PCP Internal Medicine; Visit Provider Internal Medicine
DX: S70.12XD Contusion of left thigh, subsequent encounter (principal); M25.462 Effusion, left knee
CPT/HCPCS: 99213

== ENCOUNTER 2023-06-29 14:23 | Outpatient (AMB) | payer MEDICARE, SELFPAY ==
[2023-06-29 14:26] VITALS: BP 126/82; PULSE 70; O2SAT 96; BMI 33.0
--- NOTE | 2023-06-29 14:26 | MHC.PC.OV ---
Vital Signs 06/29/23 14:26 Height 5 ft Weight 169 lb BMI 33.0 BP 126/82 Blood Pressure Location Lt brachial Position Sitting Pulse 70 Pulse Source Pulse Oximeter Pulse Oximetry (%) 96 Oxygen Delivery Method Room Air Intake Visit Reasons: Follow Up On Right Knee Fluid Allergies Penicillins [PENICILLINS] Allergy (Unknown, Verified 06/29/23 14:30) RASH Medication List - Last Reconciled 06/29/23 by Maximiliano Garcia MD gabapentin 100 mg PO DAILY 90 days glucosamine sulfate (Glucosamine) 500 mg PO DAILY naproxen (EC-Naproxen) 500 mg PO BID PRN 10 days simvastatin 40 mg PO BEDTIME 90 days Tobacco use date assessed: 06/29/23 Fall risk assessment: No Falls in past year Last assessed Fall Risk: 06/29/23 Dental Screening Dental Screen Date: 06/29/23 Did you have a dental visit in the last 12 months?: Yes Did you have a dental problem in the last 6 months where you did not have access to dental care?: No Was dental information given to patient?: Patient has dentist HPI Follow Up On Right Knee Fluid HPI Details Patient came in today to follow-up on her left knee pain She is taking naproxen pain is better however knee is still slightly swollen compared to right side Patient is reluctant to get cortisone injection She is requesting another session of physical therapy which I have ordered for the patient She will get back to me after the physical therapy if she changed her mind Patient also has developed warty skin lesion right big toe medial aspect which is pushing on her shoes and causing discomfort I would recommend that after taking shower when the skin is soft to use pumice stone slightly to rub off the skin. Patient was instructed to continue doing it little by little after every shower [facility] Medical History (Updated 06/29/23 @ 15:09 by Maximiliano Garcia MD) Swelling of left knee joint Arthritis of knee, right Hematuria, microscopic Lesion of ulnar nerve, left upper limb Lipid disorder Surgical History H/O section History of elbow surgery Family History Father No problems noted. Mother Diabetes Breast CA Social History Housing: Condominium Alcohol intake: never Patient Tobacco Use Status: Never used Tobacco e-Cigarette/Vaping Use: Never Used service: No Current occupational status: retired Cognitive needs: No Hearing needs: No Vision needs: No Questionnaire PHQ-9 Over the last 2 weeks, how often have you been bothered by any of the following problems? 1. Little interest or pleasure in doing things: not at all 2. Feeling down, depressed, or hopeless: not at all 3. Trouble falling or staying asleep, or sleeping too much: not at all 4. Feeling tired or having little energy: not at all 5. Poor appetite or overeating: not at all 6. Feeling bad about yourself - or that you are a failure or have let yourself or your family down: not at all 7. Trouble concentrating on things, such as reading the newspaper or watching television: not at all 8. Moving or speaking so slowly that other people could have noticed. Or the opposite - being so fidgety or restless that you have been moving around a lot more than usual: not at all 9. Thoughts that you would be better off or of hurting yourself in some way: not at all Total score: 0 Depression Screening Interpretation: Negative Depression Screening Done: Yes 01255 - PHQ-9 Billing: Yes Source: Developed by Drs. Stone Mccain, Kimani Clemente and colleagues, with an educational marycarmen from [employer]. Thrive Questionnaire Date Thrive assessed: 05/13/23 AUDIT C Alcohol Use Questionnaire (AUDIT-C) 1. How often do you have a drink containing alcohol?: Never 3. How often do you have six or more drinks on one occasion?: Never Total Score: 0 Score Reviewed/Action Taken: Yes KAILEE-7 AMB Questionnaire KAILEE-7 Date AKILEE - 7 assessed: 05/13/23 Source: Developed by Drs. Stone Mccain, Kimani Clemente and colleagues, with an educational marycarmen from [employer]. Review of Systems Const Denies chills and Denies fever(s) ENT Denies epistaxis and Denies nasal discharge Card Denies chest pain Resp Denies chest congestion, Denies cough and Denies hemoptysis GI Denies diarrhea and Denies nausea Skin/Breast Denies rash Neuro Reports no additional complaints Psych Reports no additional complaints Endo Reports no additional complaints Physical exam (Primary Care) Vital Signs: Last Vital Signs Pulse 70 06/29/23 14:26 BP 126/82 06/29/23 14:26 Pulse Ox 96 06/29/23 14:26 Oxygen Delivery Method Room Air 06/29/23 14:26 BMI result Body Mass Index 33.0 Tobacco/Smoking Status: Tobacco use Status Tobacco use date assessed 06/29/23 06/29/23 14:31 Patient Tobacco Use Status Never used Tobacco 06/29/23 14:29 e-Cigarette/Vaping Use Never Used 06/29/23 14:29 PHQ-9: PHQ-9 Score PHQ-9: Total score 0 06/29/23 14:50 Depression Screening Interpretation: Negative Thrive Assessment: Date of Thrive Assessment Date Thrive assessed 05/13/23 06/29/23 14:29 Const General: cooperative, comfortable and no acute distress Orientation/consciousness: patient oriented x3 HENMT Head: Yes normocephalic Eyes General: appearance normal, both eyes and all related structures Neck Neck: Yes supple Resp Effort & Inspection: normal respiratory effort, no cough and no stridor Cardio Rhythm: regular rhythm Heart sounds: S1 normal heart sound present and S2 normal heart sound present Skin General skin exam: turgor normal Neuro General: patient oriented x3, tone normal and moves all extremities Extrem Elbow/forearm/wrist images: 1. Slight swelling compared to right, range of motion intact Right lower extremity: no edema Left lower extremity: no edema Ankle/foot/toe images: 1. warty growth Assessment and Plan Assessment & Plan (1) Osteoarthritis of left knee: Code(s): M17.12 - Unilateral primary osteoarthritis, left knee Qualifiers: Osteoarthritis type: primary Qualified Code(s): M17.12 - Unilateral primary osteoarthritis, left knee (2) Pain in left knee: Code(s): M25.562 - Pain in left knee Qualifiers: Chronicity: chronic Qualified Code(s): M25.562 - Pain in left knee; G89.29 - Other chronic pain (3) Swelling of left knee joint: Code(s): M25.462 - Effusion, left knee (4) Warts of foot: Code(s): B07.9 - Viral wart, unspecified Plan Patient came in today to follow-up on her left knee pain She is taking naproxen pain is better however knee is still slightly swollen compared to right side Patient is reluctant to get cortisone injection She is requesting another session of physical therapy which I have ordered for the patient She will get back to me after the physical therapy if she changed her mind Patient also has developed warty skin lesion right big toe medial aspect which is pushing on her shoes and causing discomfort I would recommend that after taking shower when the skin is soft to use pumice stone slightly to rub off the skin. Patient was instructed to continue doing it little by little after every shower Orders: Orders PT Evaluation and Treatment Today M17.12 - Unilateral primary osteoarthritis, left knee Coding Level of Care Code Est Pt Level 3 (32152) Diagnoses Primary osteoarthritis of left knee M17.12 Osteoarthritis type: primary Chronic pain of left knee M25.562; G89.29 Chronicity: chronic Swelling of left knee joint M25.462 Warts of foot B07.9
== END 2023-06-29 15:09 | disposition home or self-care (01) ==
PROVIDERS: PCP Internal Medicine; Visit Provider Internal Medicine
DX: M17.12 Unilateral primary osteoarthritis, left knee (principal); M25.562 Pain in left knee; G89.29 Other chronic pain; M25.462 Effusion, left knee; B07.9 Viral wart, unspecified
CPT/HCPCS: 99213

== ENCOUNTER 2023-07-27 14:06 | Outpatient (AMB) | payer MEDICARE, SELFPAY ==
--- NOTE | 2023-07-27 14:11 | MHC.OFFWIV ---
Intake Vital Signs 07/27/23 14:14 Height 5 ft Weight 76.657 kg BMI 33.0 BP 112/70 Blood Pressure Location Rt brachial Position Sitting Pulse 79 Pulse Source Pulse Oximeter Temp 97.4 F Temp Source Temporal Artery Scan Pulse Oximetry (%) 100 Oxygen Delivery Method Room Air Intake Visit Reasons: EP Neck pain LT side Intake Note: pt is here c/o left side neck pain. Patient Tobacco Use Status: Never used Tobacco Allergies Penicillins [PENICILLINS] Allergy (Unknown, Verified 07/27/23 14:14) RASH Do you need a note to return to daycare/school/sports/work: No HPI HPI Comments History of Present Illness Details 1422 73 year old female presnts w/ atraumatic neck pain feels like a spasm/ tightness L>R started last night described as muscle spasm/tightness No inciting injuries.. No upper extremity numbness, tingling, weakness, urine/bowel incontinence/ retention, abd pain, saddle paresthesias, fevers, chills, nausea, vomitng, headache, vision changes, dizziness PE w/ Normal inspection.? Neck supple.?+ b/l cervical paraspinous muscle spasm L>R no midline tenderness. No meningeal signs. Concerns for musculoskeletal etiology versus cervical paraspinous muscle spasms vs torticolis, unlikely cervical myelopathy, cord compression, meningitis, encephalitis. Unlikely epidural abscess, stroke Plan at this time- will give naproxen, lidoderm, and prednsione. Educated patient on diagnosis and treatment plan, answered all question, patient verbalizes understanding. At this time patient will be discharged home, advised to return with new or worsening symptoms. Educated on worrisome signs and symptoms and when to return. At this time I feel comfortable discharge home. [facility] Medical History Swelling of left knee joint Arthritis of knee, right Hematuria, microscopic Lesion of ulnar nerve, left upper limb Lipid disorder Surgical History H/O section History of elbow surgery Family History Father No problems noted. Mother Diabetes Breast CA Social History Housing: [facility] [place] Alcohol intake: never Patient Tobacco Use Status: Never used Tobacco e-Cigarette/Vaping Use: Never Used service: No Current occupational status: retired Cognitive needs: No Hearing needs: No Vision needs: No Review of Systems Const Details: Constitutional : No Weight loss, No Fever, No Chills, ENT/Mouth : No Hearing loss, No Ear Pain, No Nasal Congestion, No Sinus Pain, No Hoarseness, No sore throat, No Rhinorrhea, No Swallowing Difficulty Cardiovascular : No Chest Pain, No SOB Respiratory : No Cough, No Dyspnea Gastrointestinal : No Nausea, No Vomiting, No Diarrhea, No abdominal Pain, No Hematochezia, No Melena Genitourinary : No Dysuria, No Urinary Frequency, No Hematuria, No Urinary Incontinence, Musculoskeletal : positive cervical back pain Skin : No Skin Lesions, No rash Neuro : No Weakness, No Numbness, No Paresthesias, no loss of bowel or bladder incontinence, no saddle anesthesia All systems reviewed & are unremarkable except as noted in HPI and below Physical Exam Vital Signs: Last Vital Signs Temp 97.4 F 07/27/23 14:14 Pulse 79 07/27/23 14:14 BP 112/70 07/27/23 14:14 Pulse Ox 100 07/27/23 14:14 Oxygen Delivery Method Room Air 07/27/23 14:14 BMI result Body Mass Index 33.0 vss Appearance: Alert.? Oriented X3.? No acute distress.? Head: Normocephalic, atraumatic, no step-offs or deformities Eyes: Pupils equal, round and reactive to light.? Neck: Normal inspection.? Neck supple.?+ b/l cervical paraspinous muscle spasm L>R no midline tenderness. No meningeal signs. CVS: Normal heart rate and rhythm.? Pulses normal.? Respiratory: No respiratory distress.? Breath sounds normal.? Abdomen: Soft and nontender.? Skin: Skin warm and dry.? Normal skin color.? Normal skin turgor.? Extremities: No lower extremity edema.? No calf ttp. 5/5 strength to bilateral upper and lower extremities Normal hand feeder tender b/l. Normal strength to b/l cheeks Back: No midline tenderness, no C-spine tenderness, full range of motion, no CVA tenderness bilaterally Neuro: Oriented X 3.? No motor deficit.? No sensory deficit. CN 2-12 intact Assessment & Plan Assessment & Plan (1) Cervical paraspinal muscle spasm: Code(s): M62.838 - Other muscle spasm Plan Take your medications as prescribed. If you were prescribed antibiotics today, it is important that you take your medication to their entirety, do not skip any doses, do not finish them early. Follow-up with your primary care provider this week. Return to the emergency department with new or worsening symptoms. Such as fevers, chills, chest pain, shortness of breath, nausea, vomiting, dizziness, headache, vision changes, lethargy In case of emergency call 911 Medications: New prednisone 40 mg (2 x 20 mg) PO DAILY 10 tabs 0RF 5 days lidocaine 4% (AsperFlex (lidocaine)) 1 patch topical DAILY PRN 15 ea 0RF pain naproxen 500 mg PO BID PRN 14 tabs 0RF pain Coding Level of Care Code Est Pt Level 3 (53586) Diagnoses Cervical paraspinal muscle spasm M62.838
[2023-07-27 14:14] VITALS: BP 112/70; PULSE 79; TEMP 36.3; O2SAT 100; BMI 33.0
== END 2023-07-27 14:35 | disposition home or self-care (01) ==
PROVIDERS: PCP Internal Medicine; Visit Provider Physician Assistant
DX: M62.838 Other muscle spasm (principal)
CPT/HCPCS: 99213

== ENCOUNTER 2023-08-11 13:00 | Outpatient (RCR) | payer MEDICARE, SELFPAY ==
--- NOTE | 2023-07-01 12:22 | MHC.PT.EP ---
[facility] [place] Office [place] [facility] [place] Office [address] Hector Combs [address] [phone] F: [phone] F: [phone] F: [phone] F: [phone] Physical Therapy Plan of Care Date of Evaluation: 07/01/23 Date of Surgery: n/a Diagnosis: L knee unilateral OA Assessment: Patient is a 73 year old R handed female who presents with s/s consistent with L knee OA, L knee pain. She is not currently working and is fairly sedentary at this time. Patient past medical history includes carcinoma and lipid disorder. Current impairments include pain, balance, flexibility, ROM, strength, activity tolerance and functional mobility. Functional limitations include decreased ability to stand, walk, transfer, negotiate stairs, kneel and squat. Patient is motivated with good rehab potential. Skilled PT will address impairments and functional limitations in order to achieve goals. Frequency and Duration: The patient will be seen 2x/week for 5 weeks Short Term Goals: I with HEP - 2 weeks Full L knee AROM - 3 weeks Able to bike 10 minutes without rest, amb 10 minutes without increased pain - 3 weeks Longterm Goals: SLB > 12 seconds b/l - 5 weeks LEFS 60/80 - 5 weeks Hip and knee strength 4/5 grossly - 5 weeks gastroc and HS min tightness - 5 weeks Treatment Plan: Modalities to reduce pain, spasms and effusion. Manual therapy to restore motion and function. Therapeutic exercise to improve strength and flexibility. Neuromuscular re-education for posture and balance. Therapeutic activities to return to functional activities of daily living. Electronically signed by: Jose Luis Negro, PT Please sign and return to therapist. Thank you for your referral.
--- NOTE | 2023-09-27 10:17 | MHC.PT.DC ---
[facility] [place] Office [place] Office [place] Office [address] Hector Combs [address] [phone] F: [phone] F: [phone] F: [phone] F: [phone] Physical Therapy Discharge Report Diagnosis: L knee unilateral OA Date of Surgery: n/a Date of Evaluation: 07/01/23 Date of Discharge: 08/19/23 Treatments to Date: 8 Cancellations to Date: No Shows to Date: Discharge Status: Improved Function Independent with HEP Discharge Summary: We did d/c PT due to end date. She improved and is I with HEP. 08/11; pPt had no c/o pain with exs. Pt has 1 visit remaining before DC. Re dispense ex NV. 08/08/23: Pt is I with program. Continues to fare well functionally. We will d/c to HEP NV. 08/01/23: pt progressing well overall with strength, function. she performed stairs with no difficulty. we will plan to d/c to HEP in 2 visits. 07/25: Educated on remaining appointments for which she scheduled out. Continued verbal cues for memory of exercises. 07/13; Pt needed v/c to increase speed on stepper from 7-15. 07/11/23: pt progressing well with ex. improved activity tolerance. we will continue to progress strength and balance. 07/07; Pt challenged with balance exs. Pt required assist with supine to sit transfer. 07/05/23: pt has been feeling better overall with skilled PT. compliant with HEP per her report. Patient is a 73 year old R handed female who presents with s/s consistent with L knee OA, L knee pain. She is not currently working and is fairly sedentary at this time. Patient past medical history includes carcinoma and lipid disorder. Current impairments include pain, balance, flexibility, ROM, strength, activity tolerance and functional mobility. Functional limitations include decreased ability to stand, walk, transfer, negotiate stairs, kneel and squat. Patient is motivated with good rehab potential. Skilled PT will address impairments and functional limitations in order to achieve goals. Electronically signed by: Jose Luis Negro, PT Please sign and return to therapist. Thank you for your referral.
== END 2023-09-27 10:18 | disposition home or self-care (01) ==
LOC: HO.PTCHIC 13:00
PROVIDERS: PCP Internal Medicine; Visit Provider Internal Medicine
DX: M17.12 Unilateral primary osteoarthritis, left knee (principal)
CPT/HCPCS: 97110; 97162

== ENCOUNTER 2023-09-21 13:27 | Outpatient (AMB) | payer MEDICARE, SELFPAY ==
--- NOTE | 2023-09-21 13:28 | MHC.PC.OV ---
Vital Signs 09/21/23 13:29 Height 5 ft Weight 170 lb 8 oz BMI 33.3 BP 122/68 Blood Pressure Location Rt brachial Position Sitting Pulse 78 Pulse Source Pulse Oximeter Pulse Oximetry (%) 99 Oxygen Delivery Method Room Air Intake Visit Reasons: 4 month follow up Allergies Penicillins [PENICILLINS] Allergy (Unknown, Verified 09/21/23 13:28) RASH Medication List - Last Reconciled 09/21/23 by Maximiliano Garcia MD gabapentin 100 mg PO DAILY 90 days glucosamine sulfate (Glucosamine) 500 mg PO DAILY lidocaine 4% (AsperFlex (lidocaine)) 1 patch topical DAILY PRN naproxen (EC-Naproxen) 500 mg PO BID PRN 10 days naproxen 500 mg PO BID PRN prednisone 40 mg (2 x 20 mg) PO DAILY 5 days simvastatin 40 mg PO BEDTIME 90 days Tobacco use date assessed: 09/21/23 Fall risk assessment: No Falls in past year Last assessed Fall Risk: 09/21/23 Dental Screening Dental Screen Date: 09/21/23 Did you have a dental visit in the last 12 months?: Yes Did you have a dental problem in the last 6 months where you did not have access to dental care?: No Was dental information given to patient?: Patient has dentist HPI 4 month follow up HPI Details Patient is a 73-year-old female came in today for her follow-up visit Continued to have pain left knee off and on but overall she is doing well she is doing exercises at home has gone through physical therapy ? Lipid disorder: Patient is on simvastatin 40 mg once a day, labs are due, patient is tolerating medications no side effects ? Patient also takes a gabapentin 100 mg at night which was started for lesion of ulna nerve left elbow 2 times a day however patient is now taking it only at night which is helping her with anxiety as well as with nerve pain. BMI is is elevated patient need to lose weight Impaired fasting sugar, have added hemoglobin A1c Has appointment in spring for physical exam labs to be done before visit [facility] Medical History Swelling of left knee joint Arthritis of knee, right Hematuria, microscopic Lesion of ulnar nerve, left upper limb Lipid disorder Surgical History H/O section History of elbow surgery Family History Father No problems noted. Mother Diabetes Breast CA Social History Housing: Condominium Alcohol intake: never Patient Tobacco Use Status: Never used Tobacco e-Cigarette/Vaping Use: Never Used service: No Current occupational status: retired Cognitive needs: No Hearing needs: No Vision needs: No Questionnaire Thrive Questionnaire Date Thrive assessed: 05/13/23 AUDIT C Alcohol Use Questionnaire (AUDIT-C) 1. How often do you have a drink containing alcohol?: Never 3. How often do you have six or more drinks on one occasion?: Never Total Score: 0 KAILEE-7 AMB Questionnaire KAILEE-7 Date KAILEE - 7 assessed: 05/13/23 Source: Developed by Drs. Stone Mccain, Isamar Rayo, Kimani Garcia and colleagues, with an educational marycarmen from [employer]. Review of Systems Const Denies chills and Denies fever(s) ENT Denies epistaxis and Denies nasal discharge Card Denies chest pain Resp Denies chest congestion, Denies cough and Denies hemoptysis GI Denies diarrhea and Denies nausea Skin/Breast Denies rash Neuro Reports no additional complaints Psych Reports no additional complaints Endo Reports no additional complaints Physical exam (Primary Care) Vital Signs: Last Vital Signs Pulse 78 09/21/23 13:29 BP 122/68 09/21/23 13:29 Pulse Ox 99 09/21/23 13:29 Oxygen Delivery Method Room Air 09/21/23 13:29 BMI result Body Mass Index 33.3 Tobacco/Smoking Status: Tobacco use Status Tobacco use date assessed 09/21/23 09/21/23 13:30 Patient Tobacco Use Status Never used Tobacco 09/21/23 13:30 e-Cigarette/Vaping Use Never Used 09/21/23 13:30 Thrive Assessment: Date of Thrive Assessment Date Thrive assessed 05/13/23 09/21/23 13:30 Const General: cooperative, comfortable and no acute distress Orientation/consciousness: patient oriented x3 HENMT Head: Yes normocephalic Eyes General: appearance normal, both eyes and all related structures Neck Neck: Yes supple Resp Effort & Inspection: normal respiratory effort, no cough and no stridor Cardio Rhythm: regular rhythm Heart sounds: S1 normal heart sound present and S2 normal heart sound present Skin General skin exam: turgor normal Neuro General: patient oriented x3, tone normal and moves all extremities Extrem Right lower extremity: no edema Left lower extremity: no edema Assessment and Plan Assessment & Plan (1) Lipid disorder: Code(s): E78.9 - Disorder of lipoprotein metabolism, unspecified (2) Lesion of ulnar nerve, left upper limb: Code(s): G56.22 - Lesion of ulnar nerve, left upper limb (3) Osteoarthritis of left knee: Code(s): M17.12 - Unilateral primary osteoarthritis, left knee Qualifiers: Osteoarthritis type: primary Qualified Code(s): M17.12 - Unilateral primary osteoarthritis, left knee (4) Obesity due to excess calories: Code(s): E66.09 - Other obesity due to excess calories Qualifiers: Obesity classification: adult class 1 (BMI 30 - 34.9) Serious obesity comorbidity presence: with serious comorbidity Body mass index: BMI 33.0-33.9 Qualified Code(s): E66.09 - Other obesity due to excess calories; Z68.33 - Body mass index [BMI] 33.0-33.9, adult (5) Impaired fasting blood sugar: Code(s): R73.01 - Impaired fasting glucose (6) Anxiety, generalized: Code(s): F41.1 - Generalized anxiety disorder Plan Patient is a 73-year-old female came in today for her follow-up visit Continued to have pain left knee off and on but overall she is doing well she is doing exercises at home has gone through physical therapy ? Lipid disorder: Patient is on simvastatin 40 mg once a day, labs are due, patient is tolerating medications no side effects ? Patient also takes a gabapentin 100 mg at night which was started for lesion of ulna nerve left elbow 2 times a day however patient is now taking it only at night which is helping her with anxiety as well as with nerve pain. BMI is is elevated patient need to lose weight Impaired fasting sugar, have added hemoglobin A1c Has appointment in spring for physical exam labs to be done before visit Orders: Orders Complete Blood Count Auto Diff Today E66.09 - Other obesity due to excess calories, E78.9 - Disorder of lipoprotein metabolism, unspecified, G56.22 - Lesion of ulnar nerve, left upper limb, M17.12 - Unilateral primary osteoarthritis, left knee, R73.01 - Impaired fasting glucose Comprehensive Met. Panel Today E66.09 - Other obesity due to excess calories, E78.9 - Disorder of lipoprotein metabolism, unspecified, G56.22 - Lesion of ulnar nerve, left upper limb, M17.12 - Unilateral primary osteoarthritis, left knee, R73.01 - Impaired fasting glucose LDL Cholesterol Direct Today E66.09 - Other obesity due to excess calories, E78.9 - Disorder of lipoprotein metabolism, unspecified, G56.22 - Lesion of ulnar nerve, left upper limb, M17.12 - Unilateral primary osteoarthritis, left knee, R73.01 - Impaired fasting glucose Hemoglobin A1c Today R73.01 - Impaired fasting glucose Medications: Discontinued naproxen (EC-Naproxen) Discontinued Reason: Duplicate 500 mg PO BID 10 days PRN 20 tabs 0RF pain M17.11 - Unilateral primary osteoarthritis, right knee Coding Level of Care Code Est Pt Level 4 (67999) Diagnoses Lipid disorder E78.9 Lesion of ulnar nerve, left upper limb G56.22 Primary osteoarthritis of left knee M17.12 Osteoarthritis type: primary Class 1 obesity due to excess calories with serious comorbidity and body mass index (BMI) of 33.0 to 33.9 in adult E66.09; Z68.33 Obesity classification: adult class 1 (BMI 30 - 34.9) Serious obesity comorbidity presence: with serious comorbidity Body mass index: BMI 33.0-33.9 Impaired fasting blood sugar R73.01 Anxiety, generalized F41.1
[2023-09-21 13:29] VITALS: BP 122/68; PULSE 78; O2SAT 99; BMI 33.3
== END 2023-09-21 14:14 | disposition home or self-care (01) ==
PROVIDERS: PCP Internal Medicine; Visit Provider Internal Medicine
DX: E78.9 Disorder of lipoprotein metabolism, unspecified (principal); G56.22 Lesion of ulnar nerve, left upper limb; M17.12 Unilateral primary osteoarthritis, left knee; E66.09 Other obesity due to excess calories; Z68.33 Body mass index [BMI] 33.0-33.9, adult; R73.01 Impaired fasting glucose; F41.1 Generalized anxiety disorder
CPT/HCPCS: 99214

== ENCOUNTER 2023-09-21 13:52 | Outpatient (REF) | payer MEDICARE, SELFPAY ==
[2023-09-21 16:04] LABS: MANUAL DIFF FLAG NO
[2023-09-21 16:12] LABS: Basophils Percent Auto 0.3 % (0-2); Eosinophils Absolute Auto 0.2 X10*3/uL (0.0-0.4); Eosinophils Percent Auto 1.8 % (0-4); Hematocrit 43.7 % (37.0-47.0); Hemoglobin 14.3 g/dl (12.0-16.0); Imm Gran Abs Auto 0.04 X10*3/uL (0.00-0.03); Imm Gran Pct Auto 0.4 % (0.0-0.4); Lymphocytes Absolute Auto 2.5 X10*3/uL (1.2-4.9); Mean Corpuscular HGB Conc 32.7 g/dl (31.0-35.0); Mean Corpuscular Hemoglobin 30.6 pg (27.0-33.0); Mean Corpuscular Volume 93.6 fL (80.0-98.0); Mean Platelet Volume 11.2 fL (9.4-12.3); Monocytes Absolute Auto 0.7 X10*3/uL (0.1-1.2); Monocytes Percent Auto 6.6 % (2-11); Neutrophils Absolute Auto 6.7 x10*3/uL (2.0-8.3); Neutrophils Percent Auto 65.9 % (45-73); Platelet Count 267 X10*3/uL (160-400); Red Blood Count 4.67 X10*6/uL (4.20-5.50); Red Cell Distribution Width 12.8 % (11.0-16.0); White Blood Count 10.1 X10*3/uL (4.8-10.8)
[2023-09-21 16:26] LABS: Estimated Average Glucose 114 mg/dL; Hemoglobin A1c % 5.6 % (<6.0)
[2023-09-21 16:38] LABS: Alanine Aminotransferase 16 U/L (0-31); Albumin Level 4.1 g/dL (3.5-5.0); Alkaline Phosphatase 75 U/L (39-117); Anion Gap 12 (12-20); Aspartate Amino Transferase 19 U/L (5-31); Bilirubin Total 0.7 mg/dL (0.0-1.0); Blood Urea Nitrogen 16 mg/dL (9-16); Calcium 9.7 mg/dL (8.4-10.2); Carbon Dioxide 30 mmol/L (22-29); Chloride 106 mmol/L (96-108); Estimated Glomerular Filt Rate > 60; Glucose Random 100 mg/dL (60-115); Potassium 4.9 mmol/L (3.3-5.1); Sodium 143 mmol/L (135-145); Total Protein 7.2 g/dL (6.5-8.0)
[2023-09-23 01:54] LABS: LDL Cholesterol Direct 129 mg/dL (<100)
== END 2023-09-21 13:53 | disposition home or self-care (01) ==
LOC: HO.HMGCLDS 13:52
PROVIDERS: PCP Internal Medicine; Visit Provider Internal Medicine
DX: E78.9 Disorder of lipoprotein metabolism, unspecified (principal); G56.22 Lesion of ulnar nerve, left upper limb; M17.12 Unilateral primary osteoarthritis, left knee; E66.09 Other obesity due to excess calories; R73.01 Impaired fasting glucose
CPT/HCPCS: 36415; 80053; 83036; 83721; 85025

== ENCOUNTER 2023-11-29 10:03 | Outpatient (AMB) | payer MEDICARE, SELFPAY ==
[2023-11-29 10:06] VITALS: BP 122/74; PULSE 73; O2SAT 97; BMI 32.3
--- NOTE | 2023-11-29 10:06 | MHC.PC.OV ---
Vital Signs 11/29/23 10:06 Height 5 ft Weight 165 lb 8 oz BMI 32.3 BP 122/74 Blood Pressure Location Lt brachial Position Sitting Pulse 73 Pulse Source Pulse Oximeter Pulse Oximetry (%) 97 Oxygen Delivery Method Room Air Intake Visit Reasons: Annual pe Allergies Penicillins [PENICILLINS] Allergy (Unknown, Verified 11/29/23 10:07) RASH Medication List - Last Reconciled 11/29/23 by Maximiliano Garcia MD gabapentin 100 mg PO DAILY 90 days glucosamine sulfate (Glucosamine) 500 mg PO DAILY simvastatin 40 mg PO BEDTIME 90 days Tobacco use date assessed: 11/29/23 Last assessed Fall Risk: 11/29/23 HPI Annual pe HPI Details Physical exam appointment Patient had labs September she will repeat labs again in February fasting Patient is stable offer no new complaints She agreed to do colonoscopy this time she had Cologuard in 2020 Has appointment for mammogram coming up Need to lose weight BMI is elevated [facility] Medical History Swelling of left knee joint Arthritis of knee, right Hematuria, microscopic Lesion of ulnar nerve, left upper limb Lipid disorder Surgical History H/O section History of elbow surgery Family History Father No problems noted. Mother Diabetes Breast CA Social History Housing: Condominium Alcohol intake: never Patient Tobacco Use Status: Never used Tobacco e-Cigarette/Vaping Use: Never Used service: No Current occupational status: retired Cognitive needs: No Hearing needs: No Vision needs: No Questionnaire PHQ-9 Over the last 2 weeks, how often have you been bothered by any of the following problems? 1. Little interest or pleasure in doing things: not at all 2. Feeling down, depressed, or hopeless: not at all 3. Trouble falling or staying asleep, or sleeping too much: not at all 4. Feeling tired or having little energy: more than half the days 5. Poor appetite or overeating: not at all 6. Feeling bad about yourself - or that you are a failure or have let yourself or your family down: not at all 7. Trouble concentrating on things, such as reading the newspaper or watching television: not at all 8. Moving or speaking so slowly that other people could have noticed. Or the opposite - being so fidgety or restless that you have been moving around a lot more than usual: not at all 9. Thoughts that you would be better off or of hurting yourself in some way: not at all Total score: 2 Depression Screening Interpretation: Negative Depression Screening Done: Yes 28633 - PHQ-9 Billing: Yes Source: Developed by Drs. Stone Mccain, Isamar Rayo, Kimani Garcia and colleagues, with an educational marycarmen from [employer]. Thrive Questionnaire Date Thrive assessed: 11/29/23 I am a: Patient What is your living situation today?: I have a steady place to live Within the past 12 months, did the food you bought not last and you didn't have the money to get more?: Sometimes True Within the past 12 months, did you worry whether your food would run out before you got money to buy more?: Sometimes True Do you have trouble paying for medicines?: Yes Do you have trouble getting transportation to medical appointments?: No Do you have trouble paying your heating and electricity bill?: Yes Do you have trouble taking care of your child, family member or friend?: No Do you have trouble with day-to-day activities such as bathing, preparing meals, shopping, managing finances, etc.?: No Are you currently unemployed and looking for a job?: No Are you interested in more education?: No Please select the resources that you would like help with: None Currently or been in a relationship where the following occur: no concerns reported THRIVE Score: 3 KAILEE-7 AMB Questionnaire KAILEE-7 Date KAILEE - 7 assessed: 11/29/23 Feeling nervous, anxious, or on edge: 2 = More than half the days Not being able to stop or control worryin = Not at all Worrying too much about different things: 1 = Several days Trouble relaxin = Not at all Being so restless that it is hard to sit still: 0 = Not at all Becoming easily annoyed or irritable: 0 = Not at all Feeling afraid as if something awful might happen: 0 = Not at all Total KAILEE-7 score (0-4 normal; 5-9 mild; 10-14 moderate; 15-21 severe): 3 Source: Developed by Drs. Stone Mccain, Isamar Rayo, Kimani Garcia and colleagues, with an educational marycarmen from [employer]. KAILEE-7 Assessment Billing KAILEE-7 Assessment Tool: KAILEE-7 Assessment 54885 Review of Systems Const Denies chills, Denies fever(s) and Denies headache(s) Eyes Denies blurry vision ENT Denies headache(s), Denies nasal discharge, Denies nasal obstruction, Denies odynophagia and Denies sinus pain Card Denies chest pain at rest and Denies chest pain with activity Resp Denies cough and Denies hemoptysis GI Denies diarrhea, Denies odynophagia, Denies vomiting and Denies hematemesis Reports as per HPI Musc Denies abnormal gait Skin/Breast Reports as per HPI Neuro Denies Neuro-related abnormal movements, Denies Abnormal speech present, Denies abnormal gait, Denies headache(s) and Denies Sensory deficit (Neuro) Psych Denies mood swings and Denies paranoia Endo Reports as per HPI Jarocho/Lymph Reports as per HPI Aller/Immun Reports as per HPI Physical exam (Primary Care) Vital Signs: Last Vital Signs Pulse 73 11/29/23 10:06 BP 122/74 11/29/23 10:06 Pulse Ox 97 11/29/23 10:06 Oxygen Delivery Method Room Air 11/29/23 10:06 BMI result Body Mass Index 32.3 Tobacco/Smoking Status: Tobacco use Status Tobacco use date assessed 11/29/23 11/29/23 10:13 Patient Tobacco Use Status Never used Tobacco 11/29/23 10:13 e-Cigarette/Vaping Use Never Used 11/29/23 10:13 PHQ-9: PHQ-9 Score PHQ-9: Total score 2 11/29/23 10:37 Depression Screening Interpretation: Negative Thrive Assessment: Date of Thrive Assessment Date Thrive assessed 11/29/23 11/29/23 10:37 Currently or been in a relationship where the following occur: no concerns reported Const General: cooperative, comfortable and no acute distress Orientation/consciousness: patient oriented x3 HENMT Head: Yes normocephalic and Yes atraumatic Eyes General: appearance normal, both eyes and all related structures Pupils: Equal, round and reactive pupils present EOM: EOMs intact bilaterally Neck Neck: Yes supple and No lymphadenopathy Thyroid: Thyroid normal Lymphatic: no lymphadenopathy noted Chest Breast/axilla palpation: normal palpation of the breasts Resp Effort & Inspection: normal respiratory effort and able to speak in complete sentences Auscultation: clear to auscultation bilaterally Cardio Heart sounds: S1 normal heart sound present and S2 normal heart sound present GI Palpation (GI): Soft to palpation and nontender Auscultation: normal bowel sounds General: Yes no CVA tenderness Back/Spine/Pelvis Back: no CVA tenderness Skin General skin exam: elasticity normal and turgor normal Neuro General: patient oriented x3 and gait normal Cranial nerves: Yes Equal, round and reactive pupils present Speech: No Abnormal speech present Sensory Exam: No Sensory deficit (Neuro) Coordination: tandem gait normal and Romberg test negative Extrem General: Yes normal exam except as noted and No edema Assessment and Plan Assessment & Plan (1) Encounter for general adult medical examination with abnormal findings: Code(s): Z00.01 - Encounter for general adult medical examination with abnormal findings (2) Colon cancer screening: Code(s): Z12.11 - Encounter for screening for malignant neoplasm of colon (3) Varicose veins of lower extremity: Code(s): I83.90 - Asymptomatic varicose veins of unspecified lower extremity Qualifiers: Laterality: unspecified laterality Varicose vein complication: unspecified Qualified Code(s): I83.90 - Asymptomatic varicose veins of unspecified lower extremity (4) Osteoarthritis involving multiple joints on both sides of body: Code(s): M15.9 - Polyosteoarthritis, unspecified (5) Impaired fasting blood sugar: Code(s): R73.01 - Impaired fasting glucose (6) Obesity due to excess calories: Code(s): E66.09 - Other obesity due to excess calories Qualifiers: Body mass index: BMI 33.0-33.9 Obesity classification: adult class 1 (BMI 30 - 34.9) Serious obesity comorbidity presence: with serious comorbidity Qualified Code(s): E66.09 - Other obesity due to excess calories; Z68.33 - Body mass index [BMI] 33.0-33.9, adult (7) Lipid disorder: Code(s): E78.9 - Disorder of lipoprotein metabolism, unspecified (8) Lesion of ulnar nerve, left upper limb: Code(s): G56.22 - Lesion of ulnar nerve, left upper limb Plan Physical exam appointment Patient had labs September she will repeat labs again in February fasting Patient is stable offer no new complaints She agreed to do colonoscopy this time she had Cologuard in 2020 Has appointment for mammogram coming up Need to lose weight BMI is elevated Orders: Orders Comprehensive [place]. Panel Fast Today E66.09 - Other obesity due to excess calories, E78.9 - Disorder of lipoprotein metabolism, unspecified, G56.22 - Lesion of ulnar nerve, left upper limb, I83.90 - Asymptomatic varicose veins of unspecified lower extremity, M15.9 - Polyosteoarthritis, unspecified, R73.01 - Impaired fasting glucose, Z00.01 - Encounter for general adult medical examination with abnormal findings Lipid Panel Today E66.09 - Other obesity due to excess calories, E78.9 - Disorder of lipoprotein metabolism, unspecified, G56.22 - Lesion of ulnar nerve, left upper limb, I83.90 - Asymptomatic varicose veins of unspecified lower extremity, M15.9 - Polyosteoarthritis, unspecified, R73.01 - Impaired fasting glucose, Z00.01 - Encounter for general adult medical examination with abnormal findings UA CC w/rflx Micro + Cult Today Z00.01 - Encounter for general adult medical examination with abnormal findings Complete Blood Count Auto Diff Today E66.09 - Other obesity due to excess calories, E78.9 - Disorder of lipoprotein metabolism, unspecified, G56.22 - Lesion of ulnar nerve, left upper limb, I83.90 - Asymptomatic varicose veins of unspecified lower extremity, M15.9 - Polyosteoarthritis, unspecified, R73.01 - Impaired fasting glucose, Z00.01 - Encounter for general adult medical examination with abnormal findings Referrals Gastroenterology Referral Z12.11 - Encounter for screening for malignant neoplasm of colon Coding Level of Care Code Est Pt Prev Care >65y(65726) Diagnoses Encounter for general adult medical examination with abnormal findings Z00.01 Colon cancer screening Z12.11 Varicose veins of lower extremity, unspecified laterality, unspecified whether complicated I83.90 Laterality: unspecified laterality Varicose vein complication: unspecified Osteoarthritis involving multiple joints on both sides of body M15.9 Impaired fasting blood sugar R73.01 Class 1 obesity due to excess calories with serious comorbidity and body mass index (BMI) of 33.0 to 33.9 in adult E66.09; Z68.33 Body mass index: BMI 33.0-33.9 Obesity classification: adult class 1 (BMI 30 - 34.9) Serious obesity comorbidity presence: with serious comorbidity Lipid disorder E78.9 Lesion of ulnar nerve, left upper limb G56.22 Additional Codes KAILEE-7 Assessment Billing - KAILEE-7 Assessment Tool: KAILEE-7 Assessment [id number] ([id number])
== END 2023-11-29 10:40 | disposition home or self-care (01) ==
LOC: HO.HMGC 10:03
PROVIDERS: PCP Internal Medicine; Visit Provider Internal Medicine
DX: Z00.01 Encounter for general adult medical examination with abnormal findings (principal); Z12.11 Encounter for screening for malignant neoplasm of colon; I83.90 Asymptomatic varicose veins of unspecified lower extremity; M15.9 Polyosteoarthritis, unspecified; R73.01 Impaired fasting glucose; E66.09 Other obesity due to excess calories; Z68.33 Body mass index [BMI] 33.0-33.9, adult; E78.9 Disorder of lipoprotein metabolism, unspecified; G56.22 Lesion of ulnar nerve, left upper limb
CPT/HCPCS: 99397

== ENCOUNTER 2023-12-22 09:57 | Outpatient (REF) | payer MEDICARE, SELFPAY | END 2023-12-22 09:58 | disposition home or self-care (01) | LOC: HO.MAMMO 09:57 | PROVIDERS: PCP Internal Medicine; Visit Provider Internal Medicine | DX: Z12.31 Encounter for screening mammogram for malignant neoplasm of breast (principal) | CPT/HCPCS: 77063; 77067 ==

== ENCOUNTER → 2023-12-22 10:15 | Outpatient (BNV) | payer MEDICARE, SELFPAY | PROVIDERS: PCP Internal Medicine; Visit Provider Radiology Diagnostic Radiology | DX: Z12.31 Encounter for screening mammogram for malignant neoplasm of breast (principal) | CPT/HCPCS: 77063; 77067 ==

== ENCOUNTER 2024-03-07 10:42 | Outpatient (REF) | payer MEDICARE, SELFPAY ==
[2024-03-07 13:11] LABS: MANUAL DIFF FLAG NO
[2024-03-07 13:18] LABS: Basophils Percent Auto 0.3 % (0-2); Eosinophils Absolute Auto 0.2 X10*3/uL (0.0-0.4); Eosinophils Percent Auto 2.2 % (0-4); Hematocrit 43.2 % (37.0-47.0); Hemoglobin 14.4 g/dl (12.0-16.0); Imm Gran Abs Auto 0.05 X10*3/uL (0.00-0.03); Imm Gran Pct Auto 0.5 % (0.0-0.4); Lymphocytes Absolute Auto 2.4 X10*3/uL (1.2-4.9); Lymphocytes Percent Auto 24.6 % (20-40); Mean Corpuscular HGB Conc 33.3 g/dl (31.0-35.0); Mean Corpuscular Hemoglobin 30.8 pg (27.0-33.0); Mean Corpuscular Volume 92.3 fL (80.0-98.0); Mean Platelet Volume 11.1 fL (9.4-12.3); Monocytes Absolute Auto 0.7 X10*3/uL (0.1-1.2); Neutrophils Absolute Auto 6.3 x10*3/uL (2.0-8.3); Neutrophils Percent Auto 65.4 % (45-73); Platelet Count 266 X10*3/uL (160-400); Red Blood Count 4.68 X10*6/uL (4.20-5.50); Red Cell Distribution Width 13.1 % (11.0-16.0); White Blood Count 9.6 X10*3/uL (4.8-10.8)
[2024-03-07 13:34] LABS: Alanine Aminotransferase 16 U/L (0-31); Alkaline Phosphatase 74 U/L (39-117); Anion Gap 13 (12-20); Aspartate Amino Transferase 20 U/L (5-31); Bilirubin Total 0.6 mg/dL (0.0-1.0); Blood Urea Nitrogen 16 mg/dL (9-16); Calcium 9.5 mg/dL (8.4-10.2); Carbon Dioxide 29 mmol/L (22-29); Chloride 106 mmol/L (96-108); Cholesterol 218 mg/dL (<200); Estimated Glomerular Filt Rate > 60; Glucose Fasting 101 mg/dL (60-99); HDL Cholesterol 48 mg/dL (>40); LDL Cholesterol Calculated 129 mg/dL (<100); Potassium 4.8 mmol/L (3.3-5.1); Sodium 143 mmol/L (135-145); Total Protein 7.3 g/dL (6.5-8.0); Triglycerides 205 mg/dL (<150)
[2024-03-07 17:07] LABS: Appearance Urine Cloudy; Color Urine Dark Yellow; Glucose Urine UA Negative (Negative); Leukocyte Esterase Urine Small (1+) (Negative); Nitrite Urine Positive (Negative); PH 5.5 (5.0-9.0); UMIC TRIGGER UACC YES; Urine Blood Trace (Negative); Urine Ketones Negative (Negative); Urine Protein Negative (Neg-Trace)
[2024-03-07 17:35] LABS: Bacteria Urine 4+ (None Seen); Hyaline Casts Urine 0-2 /LPF (0-2); RBC Urine 0-2 /HPF (0-2); UACC Culture Trigger YES; WBC Urine 0-5 /HPF (0-5)
== END 2024-03-07 10:43 | disposition home or self-care (01) ==
LOC: HO.HMGCLDS 10:42
PROVIDERS: PCP Internal Medicine; Visit Provider Internal Medicine
DX: Z00.01 Encounter for general adult medical examination with abnormal findings (principal); I83.90 Asymptomatic varicose veins of unspecified lower extremity; M15.9 Polyosteoarthritis, unspecified; R73.01 Impaired fasting glucose; E66.09 Other obesity due to excess calories; E78.9 Disorder of lipoprotein metabolism, unspecified; G56.22 Lesion of ulnar nerve, left upper limb; R82.90 Unspecified abnormal findings in urine
CPT/HCPCS: 36415; 80053; 80061; 81001; 81003; 85025; 87086; 87088; 87186

== ENCOUNTER 2024-03-14 10:31 | Outpatient (AMB) | payer MEDICARE, SELFPAY ==
--- NOTE | 2024-03-14 10:33 | MHC.PC.OV ---
Vital Signs 03/14/24 10:34 Height 5 ft Weight 165 lb 4 oz BMI 32.3 BP 128/64 Blood Pressure Location Rt brachial Position Sitting Pulse 100 Pulse Source Pulse Oximeter Pulse Oximetry (%) 95 Oxygen Delivery Method Room Air Intake Visit Reasons: 3M F/U Allergies Penicillins [PENICILLINS] Allergy (Unknown, Verified 03/14/24 10:34) RASH Medication List - Last Reconciled 03/14/24 by Maximiliano Garcia MD gabapentin 100 mg PO DAILY 90 days glucosamine sulfate (Glucosamine) 500 mg PO DAILY simvastatin 40 mg PO BEDTIME 90 days Tobacco use date assessed: 03/14/24 Fall risk assessment: No Falls in past year Last assessed Fall Risk: 03/14/24 Dental Screening Dental Screen Date: 03/14/24 Did you have a dental visit in the last 12 months?: Yes Did you have a dental problem in the last 6 months where you did not have access to dental care?: No Was dental information given to patient?: Patient has dentist HPI 3M F/U HPI Details Patient is a 73-year-old female came in today for her follow-up visit Continued to have pain left knee off and on but overall she is doing well she is doing exercises at home ? Lipid disorder: Patient is on simvastatin 40 mg once a day, labs are due, patient is tolerating medications no side effects ? Patient also takes a gabapentin 100 mg at night which was started for lesion of ulna nerve left elbow 2 times a day however patient is now taking it only at night which is helping her with anxiety as well as with nerve pain. BMI is is elevated patient need to lose weight Impaired fasting sugar, need diet-controlled She has appointment coming end of this month with gastroenterology as colonoscopy screening. Patient will return in August for follow-up now new line labs are needed before visit [facility] Medical History Swelling of left knee joint Arthritis of knee, right Hematuria, microscopic Lesion of ulnar nerve, left upper limb Lipid disorder Surgical History H/O section History of elbow surgery Family History Father No problems noted. Mother Diabetes Breast CA Social History Housing: Condominium Alcohol intake: never Patient Tobacco Use Status: Never used Tobacco e-Cigarette/Vaping Use: Never Used service: No Current occupational status: retired Cognitive needs: No Hearing needs: No Vision needs: No Questionnaire Thrive Questionnaire Date Thrive assessed: 11/29/23 AUDIT C Alcohol Use Questionnaire (AUDIT-C) 1. How often do you have a drink containing alcohol?: Never 3. How often do you have six or more drinks on one occasion?: Never Total Score: 0 Score Reviewed/Action Taken: Yes KAILEE-7 AMB Questionnaire KAILEE-7 Date KAILEE - 7 assessed: 11/29/23 Source: Developed by Drs. Stone Mccain, Isamar Rayo, Kimani Garcia and colleagues, with an educational marycarmen from [employer]. Review of Systems Const Denies chills and Denies fever(s) ENT Denies epistaxis and Denies nasal discharge Card Denies chest pain Resp Denies chest congestion, Denies cough and Denies hemoptysis GI Denies diarrhea and Denies nausea Skin/Breast Denies rash Neuro Reports no additional complaints Psych Reports no additional complaints Endo Reports no additional complaints Physical exam (Primary Care) Vital Signs: Last Vital Signs Pulse 100 03/14/24 10:34 BP 128/64 03/14/24 10:34 Pulse Ox 95 03/14/24 10:34 Oxygen Delivery Method Room Air 03/14/24 10:34 BMI result Body Mass Index 32.3 Tobacco/Smoking Status: Tobacco use Status Tobacco use date assessed 03/14/24 03/14/24 10:35 Patient Tobacco Use Status Never used Tobacco 03/14/24 10:35 e-Cigarette/Vaping Use Never Used 03/14/24 10:35 Thrive Assessment: Date of Thrive Assessment Date Thrive assessed 11/29/23 03/14/24 10:35 Const General: cooperative, comfortable and no acute distress Orientation/consciousness: patient oriented x3 HENMT Head: Yes normocephalic Eyes General: appearance normal, both eyes and all related structures Neck Neck: Yes supple Resp Effort & Inspection: normal respiratory effort, no cough and no stridor Cardio Rhythm: regular rhythm Heart sounds: S1 normal heart sound present and S2 normal heart sound present Skin General skin exam: turgor normal Neuro General: patient oriented x3, tone normal and moves all extremities Extrem Right lower extremity: no edema Left lower extremity: no edema Assessment and Plan Assessment & Plan (1) Lipid disorder: Code(s): E78.9 - Disorder of lipoprotein metabolism, unspecified (2) Varicose veins of lower extremity: Code(s): I83.90 - Asymptomatic varicose veins of unspecified lower extremity Qualifiers: Laterality: unspecified laterality Varicose vein complication: unspecified Qualified Code(s): I83.90 - Asymptomatic varicose veins of unspecified lower extremity (3) Osteoarthritis involving multiple joints on both sides of body: Code(s): M15.9 - Polyosteoarthritis, unspecified (4) Impaired fasting blood sugar: Code(s): R73.01 - Impaired fasting glucose (5) Obesity due to excess calories: Code(s): E66.09 - Other obesity due to excess calories Qualifiers: Body mass index: BMI 33.0-33.9 Obesity classification: adult class 1 (BMI 30 - 34.9) Serious obesity comorbidity presence: with serious comorbidity Qualified Code(s): E66.09 - Other obesity due to excess calories; Z68.33 - Body mass index [BMI] 33.0-33.9, adult (6) Lesion of ulnar nerve, left upper limb: Code(s): G56.22 - Lesion of ulnar nerve, left upper limb (7) Osteoarthritis of left knee: Code(s): M17.12 - Unilateral primary osteoarthritis, left knee Qualifiers: Osteoarthritis type: primary Qualified Code(s): M17.12 - Unilateral primary osteoarthritis, left knee (8) Anxiety, generalized: Code(s): F41.1 - Generalized anxiety disorder Plan Patient is a 73-year-old female came in today for her follow-up visit Continued to have pain left knee off and on but overall she is doing well she is doing exercises at home ? Lipid disorder: Patient is on simvastatin 40 mg once a day, labs are due, patient is tolerating medications no side effects She has varicosities both legs but they are not painful. ? Patient also takes a gabapentin 100 mg at night which was started for lesion of ulna nerve left elbow 2 times a day however patient is now taking it only at night which is helping her with anxiety as well as with nerve pain. BMI is is elevated patient need to lose weight Impaired fasting sugar, need diet-controlled She has appointment coming end of this month with gastroenterology as colonoscopy screening. Patient will return in August for follow-up now new line labs are needed before visit Orders: Orders Complete Blood Count Auto Diff 6 Months E66.09 - Other obesity due to excess calories, E78.9 - Disorder of lipoprotein metabolism, unspecified, F41.1 - Generalized anxiety disorder, R73.01 - Impaired fasting glucose, Z68.33 - Body mass index [BMI] 33.0-33.9, adult Comprehensive [place]. Panel Fast 6 Months E66.09 - Other obesity due to excess calories, E78.9 - Disorder of lipoprotein metabolism, unspecified, F41.1 - Generalized anxiety disorder, R73.01 - Impaired fasting glucose, Z68.33 - Body mass index [BMI] 33.0-33.9, adult Lipid Panel 6 Months E66.09 - Other obesity due to excess calories, E78.9 - Disorder of lipoprotein metabolism, unspecified, F41.1 - Generalized anxiety disorder, R73.01 - Impaired fasting glucose, Z68.33 - Body mass index [BMI] 33.0-33.9, adult Medications: Refilled gabapentin 100 mg PO DAILY 90 caps 1RF 90 days G56.22 - Lesion of ulnar nerve, left upper limb Coding Level of Care Code Est Pt Level 4 (92719) Complex EM visit Add On G2211 Diagnoses Lipid disorder E78.9 Varicose veins of lower extremity, unspecified laterality, unspecified whether complicated I83.90 Laterality: unspecified laterality Varicose vein complication: unspecified Osteoarthritis involving multiple joints on both sides of body M15.9 Impaired fasting blood sugar R73.01 Class 1 obesity due to excess calories with serious comorbidity and body mass index (BMI) of 33.0 to 33.9 in adult E66.09; Z68.33 Body mass index: BMI 33.0-33.9 Obesity classification: adult class 1 (BMI 30 - 34.9) Serious obesity comorbidity presence: with serious comorbidity Lesion of ulnar nerve, left upper limb G56.22 Primary osteoarthritis of left knee M17.12 Osteoarthritis type: primary Anxiety, generalized F41.1
[2024-03-14 10:34] VITALS: BP 128/64; PULSE 100; O2SAT 95; BMI 32.3
== END 2024-03-14 10:50 | disposition home or self-care (01) ==
PROVIDERS: PCP Internal Medicine; Visit Provider Internal Medicine
DX: E78.9 Disorder of lipoprotein metabolism, unspecified (principal); E66.09 Other obesity due to excess calories; Z68.33 Body mass index [BMI] 33.0-33.9, adult; I83.90 Asymptomatic varicose veins of unspecified lower extremity; M15.9 Polyosteoarthritis, unspecified; R73.01 Impaired fasting glucose; G56.22 Lesion of ulnar nerve, left upper limb; M17.12 Unilateral primary osteoarthritis, left knee; F41.1 Generalized anxiety disorder
CPT/HCPCS: 99214; G2211

== ENCOUNTER 2024-04-04 14:33 | Outpatient (AMB) | payer MEDICARE, SELFPAY ==
--- NOTE | 2024-04-04 14:36 | AM.OFFWIN_ITS ---
Intake Vital Signs 04/04/24 14:37 Height 5 ft Weight 165 lb 4 oz BMI 32.3 BP 110/64 Blood Pressure Location Rt brachial Position Sitting Pulse 82 Pulse Source Pulse Oximeter Temp 97.0 F Temp Source Temporal Artery Scan Pulse Oximetry (%) 98 Oxygen Delivery Method Room Air Intake Visit Reasons: EP cough lost voice Intake Note: Temitope is a 73 year old female who presents to the office today for c/o cough,congestion that started Tuesday03/30/24. Patient Tobacco Use Status: Never used Tobacco Allergies Penicillins [PENICILLINS] Allergy (Unknown, Verified 04/04/24 14:39) RASH HPI HPI Comments History of Present Illness Details 73 year old female who presents to the [facility] clinic today for c/o cough,congestion that started Tuesday03/30/24. Denies fevers, chills, nausea or vomiting. [facility] Medical History Swelling of left knee joint Arthritis of knee, right Hematuria, microscopic Lesion of ulnar nerve, left upper limb Lipid disorder Surgical History H/O section History of elbow surgery Family History Father No problems noted. Mother Diabetes Breast CA Social History Housing: Condominium Alcohol intake: never Patient Tobacco Use Status: Never used Tobacco e-Cigarette/Vaping Use: Never Used service: No Current occupational status: retired Cognitive needs: No Hearing needs: No Vision needs: No Review of Systems Const All systems reviewed & are unremarkable except as noted in HPI and below Physical Exam Vital Signs: Last Vital Signs Temp 97.0 F 04/04/24 14:37 Pulse 82 04/04/24 14:37 BP 110/64 04/04/24 14:37 Pulse Ox 98 04/04/24 14:37 Oxygen Delivery Method Room Air 04/04/24 14:37 BMI result Body Mass Index 32.3 Const General: comfortable and no acute distress Nutritional Appearance: overweight Orientation/consciousness: patient oriented x3 HEENT Head: Yes normocephalic Ears: external ears normal and TM abnormal bulging and with fluid behind the TM; not bullous and not erythematous General nose exam: Normal nasal mucous membranes and turbinates present Face and sinus: Yes sinuses nontender Mouth: moist mucous membranes Teeth and gingiva: dentures Throat: Yes postnasal drainage Resp Effort & Inspection: normal respiratory effort and able to speak in complete sentences Auscultation: clear to auscultation bilaterally, no crackles, no rales, no rhonchi and no wheezes Cardio Heart sounds: S1 normal heart sound present and S2 normal heart sound present Neuro General: patient oriented x3, gait normal and moves all extremities Psych Speech and movement: Normal speech and movement present Assessment & Plan Assessment & Plan (1) Cough in adult: Code(s): R05.9 - Cough, unspecified Plan: OTC cough remedies Warm fluids with honey Acetaminophen for relief SARs (2) URI, acute: Code(s): J06.9 - Acute upper respiratory infection, unspecified Plan: OTC cough remedies Warm fluids with honey Acetaminophen for relief SARs Orders: Orders SARS-CoV2/FLU/RSV Today J06.9 - Acute upper respiratory infection, unspecified Medications: New [id number] 5-10-100 mg/5 mL (Adult Robitussin Peak Cold M-S) 10 mL PO Q4H PRN 237 mL 0RF cold symptoms J06.9 - Acute upper respiratory infection, unspecified, R05.9 - Cough, unspecified benzonatate 100 mg PO TID 30 caps 0RF J06.9 - Acute upper respiratory infection, unspecified, R05.9 - Cough, unspecified Coding Level of Care Code Est Pt Level 3 (29998) Diagnoses Cough in adult R05.9 URI, acute J06.9 Time Spent (min) 15
[2024-04-04 14:37] VITALS: BP 110/64; PULSE 82; TEMP 36.1; O2SAT 98; BMI 32.3
== END 2024-04-04 15:04 | disposition home or self-care (01) ==
PROVIDERS: PCP Internal Medicine; Visit Provider Nurse Practitioner Family
DX: R05.9 Cough, unspecified (principal); J06.9 Acute upper respiratory infection, unspecified
CPT/HCPCS: 99213

== ENCOUNTER 2024-04-04 14:48 | Outpatient (REF) | payer MEDICARE, SELFPAY ==
[2024-04-04 17:59] LABS: Influenza A PCR NEGATIVE (Negative); Influenza B PCR NEGATIVE (Negative); Resp Syncy Virus RNA Qual PCR NEGATIVE (Negative); SARS COV2 PCR INHOUSE NEGATIVE (Negative)
== END 2024-04-04 14:49 | disposition home or self-care (01) ==
LOC: HO.LAB 14:48
PROVIDERS: Visit Provider Nurse Practitioner Family
DX: J06.9 Acute upper respiratory infection, unspecified (principal)
CPT/HCPCS: 0241U

== ENCOUNTER 2024-04-10 11:58 | Outpatient (AMB) | payer MEDICARE, SELFPAY ==
[2024-04-10 12:09] VITALS: BP 118/72; PULSE 78; TEMP 36.7; O2SAT 97; BMI 32.2
--- NOTE | 2024-04-10 12:09 | MHC.OFFWIV ---
Intake Vital Signs 04/10/24 12:09 Height 5 ft Weight 165 lb BMI 32.2 BP 118/72 Blood Pressure Location Lt brachial Position Sitting Pulse 78 Pulse Source Pulse Oximeter Temp 98.0 F Temp Source Oral Pulse Oximetry (%) 97 Oxygen Delivery Method Room Air Intake Visit Reasons: cough, feel woozie Intake Note: pt is here for cough, feeling wozie since yesterday Patient Tobacco Use Status: Never used Tobacco Allergies Penicillins [PENICILLINS] Allergy (Unknown, Verified 04/10/24 12:10) RASH Do you need a note to return to daycare/school/sports/work: No HPI HPI Comments History of Present Illness Details 73-year-old female comes in today complaining of continued cough for the last week. She was given benzonatate for her cough and now she feels ?woozy and wonders if it is from that medication. She is also taking it with the Robitussin DM. She denies any fevers chills sweats no sinus pain or pressure but her cough is increasing steadily [facility] Medical History Swelling of left knee joint Arthritis of knee, right Hematuria, microscopic Lesion of ulnar nerve, left upper limb Lipid disorder Surgical History H/O section History of elbow surgery Family History Father No problems noted. Mother Diabetes Breast CA Social History Housing: Condominium Alcohol intake: never Patient Tobacco Use Status: Never used Tobacco e-Cigarette/Vaping Use: Never Used service: No Current occupational status: retired Cognitive needs: No Hearing needs: No Vision needs: No Review of Systems Const All systems reviewed & are unremarkable except as noted in HPI and below Eyes Reports no additional complaints ENT Reports no additional complaints Card Reports no additional complaints Resp Reports cough GI Reports no additional complaints Physical Exam Vital Signs: Last Vital Signs Temp 98.0 F 04/10/24 12:09 Pulse 78 04/10/24 12:09 BP 118/72 04/10/24 12:09 Pulse Ox 97 04/10/24 12:09 Oxygen Delivery Method Room Air 04/10/24 12:09 BMI result Body Mass Index 32.2 Const General: healthy appearing, acute distress mild and anxious HEENT Head: Yes normal to inspection, Yes normocephalic and Yes atraumatic Ears: hearing grossly normal bilaterally and external ears normal General nose exam: Normal external nose present Face and sinus: Yes normal facial exam and Yes sinuses nontender Throat: Yes posterior oropharynx normal Resp Effort & Inspection: normal respiratory effort Auscultation: clear to auscultation bilaterally Cardio Rate: regular rate Rhythm: regular rhythm Heart sounds: S1 normal heart sound present and S2 normal heart sound present Results Reviewed Results Reviewed: Chest x-ray done today was negative for pneumonia. Assessment & Plan Assessment & Plan (1) Bronchitis: Code(s): J40 - Bronchitis, not specified as acute or chronic Plan: The patient was given an antibiotic and will discontinue the benzonatate. Follow up with her PCP Plan see plan Orders: Orders XR chest 2V Today R05.9 - Cough, unspecified Medications: New doxycycline hyclate 100 mg PO BID 7 days 14 caps 0RF Coding Level of Care Code Est Pt Level 3 (20496) Diagnoses Bronchitis J40
== END 2024-04-10 14:03 | disposition home or self-care (01) ==
PROVIDERS: PCP Internal Medicine; Visit Provider Physician Assistant Medical
DX: J40 Bronchitis, not specified as acute or chronic (principal)
CPT/HCPCS: 99213

== ENCOUNTER 2024-04-10 13:03 | Outpatient (REF) | payer MEDICARE, SELFPAY ==
--- NOTE | ~2024-04-10 | XR_ITS ---
EXAMINATION: XR CHEST CLINICAL INFORMATION: Cough unspecified COMPARISON: None available. TECHNIQUE: 2 views of the chest were obtained. FINDINGS: Lungs clear. No pleural effusions. Heart and pulmonary vessels normal. XR/XR chest 2V IMPRESSION: No active disease.
== END 2024-04-10 13:04 | disposition home or self-care (01) ==
LOC: HO.HMGCX 13:03
PROVIDERS: PCP Internal Medicine; Visit Provider Physician Assistant Medical
DX: R05.9 Cough, unspecified (principal)
CPT/HCPCS: 71046

== ENCOUNTER 2024-04-11 14:21 | Outpatient (AMB) | payer MEDICARE, SELFPAY ==
--- NOTE | 2024-04-11 14:27 | A.OFFVIS_ITS ---
Vital Signs 04/11/24 14:34 Height 5 ft Weight 160 lb 7.944 oz BMI 31.3 Intake Visit Reasons: Colonoscopy Screening Intake Note: Temitope presents to in office visit today as a new patient for colonoscopy screening. CC: Patient states that she had a cologuard around 2019 but she has never had any colonoscopy done. Patient states that she has been having diarrhea since she started taking Doxycycline. Denies other GI symptoms today. [employer] Order Clerk Required: No Allergies Penicillins [PENICILLINS] Allergy (Unknown, Verified 04/10/24 12:10) RASH [facility] Medical History (Updated 04/11/24 @ 14:31 by TODD Chery) Bronchitis Cough Encounter for general adult medical examination with abnormal findings Colon cancer screening Swelling of left knee joint Traumatic ecchymosis of left thigh Pain in left knee Injury of left knee Fall Acute pharyngitis Basal cell carcinoma Medicare annual wellness visit, initial Encounter for annual routine gynecological examination Impacted cerumen of both ears Arthritis of knee, right Hematuria, microscopic Lesion of ulnar nerve, left upper limb Lipid disorder Surgical History H/O section History of elbow surgery Family History Father No problems noted. Mother Diabetes Breast CA Social History Housing: Condominium Alcohol intake: never Patient Tobacco Use Status: Never used Tobacco e-Cigarette/Vaping Use: Never Used service: No Current occupational status: retired Cognitive needs: No Hearing needs: No Vision needs: No Review of Systems Const Denies fatigue, Denies fever(s), Denies night sweats, Denies poor appetite and Denies weight loss Eyes Reports requires corrective lenses ENT Reports Normal hearing present, Denies dental pain, Denies dysphagia, Denies hearing loss, Denies mouth pain, Denies odynophagia, Denies throat swelling, Denies tongue swelling and Reports other (Dentition adequate) GI Details: Denies abdominal pain, Denies melena, Denies bloating, Denies hematochezia, Denies constipation, Denies GI cramping, Denies dysphagia, Denies excessive flatus, Denies early satiety, Denies heartburn, Denies diarrhea, Denies nausea, Denies odynophagia, Denies vomiting and Denies hematemesis Skin/Breast Denies pruritus, Denies lesions, Denies rash and Denies jaundice Neuro Reports Normal hearing present and Denies Abnormal speech present Endo Denies fatigue Aller/Immun Denies throat swelling and Denies tongue swelling Physical Exam Const General: cooperative, no acute distress, well developed and well groomed Nutritional Appearance: well nourished, obese and overweight Orientation/consciousness: oriented to person, oriented to place and oriented to time Limitations: No language barrier, ambulation with cane, ambulation with walker and wheelchair HEENT Head: Yes normocephalic and Yes atraumatic Eyes General: appearance normal, both eyes and all related structures Pupils: Equal, round and reactive pupils present Neck Neck: Yes normal visual inspection and Yes no lymphadenopathy Thyroid: Thyroid normal Resp Effort & Inspection: normal respiratory effort and able to speak in complete sentences Auscultation: clear to auscultation bilaterally Cardio Rate: regular rate Rhythm: regular rhythm Heart sounds: Normal, physiologic split S2 sound present Peripheral pulses: radial pulses present and posterior tibial pulses present GI Inspection: No distended and No Abdominal panniculus present Palpation (GI): Soft to palpation, nontender, no guarding, not rigid, No hepatosplenomegaly present and Hepatosplenomegaly present Percussion: Yes normal to percussion Auscultation: normal bowel sounds Rectal Exam - Female: deferred Skin General skin exam: no rashes or lesions noted, turgor normal, skin not dry, no jaundice, No spider nevi and no striae Rashes: no rashes Nails: normal Neuro General: oriented to person, oriented to place and oriented to time Cranial nerves: Yes Equal, round and reactive pupils present and Yes Normal hearing present Speech: No Abnormal speech present Extrem General: Yes normal to inspection, No clubbing, No cyanosis and No edema Psych Thought process: Normal thought process present and not confabulating Thought content: Normal thought content present Insight: Good insight present (Psych) Judgement: Good judgement present (Psych) Assessment & Plan Assessment & Plan (1) Pre-op examination: Code(s): Z01.818 - Encounter for other preprocedural examination Category: Medical Orders: Orders Colonoscopy - GI Use Only Today Z01.818 - Encounter for other preprocedural examination Medications: New bisacodyl (Dulcolax (bisacodyl)) 10 mg (2 x 5 mg) PO BEDTIME 4 tabs 0RF 2 days peg 3350-electrolytes 236-22.74-6.74 -5.86 gram (Golytely) until fecal effluent is clear; do not exceed a total volume of 2,000 mL 240 mL PO Q10M 4,000 mL 0RF 1 day Z12.11 - Encounter for screening for malignant neoplasm of colon Coding Diagnoses Pre-op examination Z01.818
[2024-04-11 14:34] VITALS: BP 121/74; PULSE 88; BMI 31.3
--- NOTE | 2024-04-11 14:47 | MHC.OFFVIS ---
Vital Signs 04/11/24 14:34 04/11/24 14:49 Height 5 ft Weight 160 lb 7.944 oz BMI 31.3 31.3 BP 121/74 Blood Pressure Location Rt brachial Position Sitting Pulse 88 Intake Visit Reasons: Bitely s/p screening Allergies Penicillins [PENICILLINS] Allergy (Unknown, Verified 04/11/24 14:48) RASH HPI HPI Bitely s/p screening: Details: 73-year-old female here for preprocedural meeting to discuss a screening colonoscopy. She is referred by Maximiliano Garcia. PMX Obesity Generalized osteoarthritis Impaired fasting glucose History of basal cell carcinoma of the skin High cholesterol Ulnar nerve injury left upper limb * SURGICAL HISTORY section Elbow surgery * ALLERGIES Penicillin * Taste Kitchen LABS: Laboratory Tests 03/07/24 10:45 WBC 9.6 Hgb 14.4 Hct 43.2 Plt Count 266 Estimated GFR > 60 Total Bilirubin 0.6 AST 20 ALT 16 Alkaline Phosphatase 74 TODAY'S VISIT She had a negative Cologuard in 2020 and she is not fond of the idea. She has no FHX of colon cancer and she has never had a colonoscopy. She has diarrhea now, but that is only since she started an antibitoic for a cough. I recommend a probiotic supplement. After discussion, she opts to repeat Cologuard. ROV 8 weeks. [facility] Medical History Bronchitis Cough Encounter for general adult medical examination with abnormal findings Colon cancer screening Swelling of left knee joint Traumatic ecchymosis of left thigh Pain in left knee Injury of left knee Fall Acute pharyngitis Basal cell carcinoma Medicare annual wellness visit, initial Encounter for annual routine gynecological examination Impacted cerumen of both ears Arthritis of knee, right Hematuria, microscopic Lesion of ulnar nerve, left upper limb Lipid disorder Surgical History H/O section History of elbow surgery Family History Father No problems noted. Mother Diabetes Breast CA Social History Housing: Condominium Alcohol intake: never Patient Tobacco Use Status: Never used Tobacco e-Cigarette/Vaping Use: Never Used service: No Current occupational status: retired Cognitive needs: No Hearing needs: No Vision needs: No Review of Systems Const Denies fatigue, Denies fever(s), Denies night sweats, Denies poor appetite and Denies weight loss ENT Reports Normal hearing present, Denies dental pain, Denies dysphagia, Denies hearing loss, Denies mouth pain, Denies odynophagia, Denies throat swelling, Denies tongue swelling and Reports other (Dentition adequate) Card Reports no additional complaints Resp Reports cough GI Details: Denies abdominal pain, Denies melena, Denies bloating, Denies hematochezia, Denies constipation, Denies GI cramping, Denies dysphagia, Denies excessive flatus, Denies early satiety, Denies heartburn, Reports diarrhea, Denies nausea, Denies odynophagia, Denies vomiting and Denies hematemesis Skin/Breast Denies pruritus, Denies lesions, Denies rash and Denies jaundice Neuro Reports Normal hearing present and Denies Abnormal speech present Endo Denies fatigue Aller/Immun Denies throat swelling and Denies tongue swelling Physical Exam Vital Signs: Last Vital Signs Pulse 88 04/11/24 14:34 BP 121/74 04/11/24 14:34 BMI result Body Mass Index 31.3 Const General: cooperative, no acute distress, well developed and well groomed Nutritional Appearance: well nourished and obese Orientation/consciousness: oriented to person, oriented to place and oriented to time Limitations: No language barrier HEENT Head: Yes normocephalic and Yes atraumatic Eyes General: appearance normal, both eyes and all related structures Pupils: Equal, round and reactive pupils present Neck Neck: Yes normal visual inspection and Yes no lymphadenopathy Thyroid: Thyroid normal Resp Effort & Inspection: normal respiratory effort and able to speak in complete sentences Auscultation: clear to auscultation bilaterally Cardio Rate: regular rate Rhythm: regular rhythm Heart sounds: Normal, physiologic split S2 sound present Peripheral pulses: radial pulses present and posterior tibial pulses present GI Inspection: No distended, Yes Abdominal panniculus present and Yes obesity Palpation (GI): Soft to palpation, nontender, no guarding, not rigid and No hepatosplenomegaly present Percussion: Yes normal to percussion Auscultation: normal bowel sounds Rectal Exam - Female: deferred Skin General skin exam: no rashes or lesions noted, turgor normal, skin not dry, no jaundice, No spider nevi and no striae Rashes: no rashes Nails: normal Neuro General: oriented to person, oriented to place and oriented to time Cranial nerves: Yes Equal, round and reactive pupils present and Yes Normal hearing present Speech: No Abnormal speech present Extrem Other: marked varicose veins of ankles General: No clubbing, No cyanosis and No edema Psych Appearance: grossly normal and well kempt Mental Status: mental status grossly normal Speech and movement: Normal speech and movement present Affect: normal affect Attitude: cooperative Thought process: Normal thought process present and not confabulating Thought content: Normal thought content present Insight: Limited insight present (Psych) Judgement: Limited judgement present (Psych) Assessment & Plan Assessment & Plan (1) Pre-op examination: Code(s): Z01.818 - Encounter for other preprocedural examination Category: Medical Plan She had a negative Cologuard in 2020 and she is not fond of the idea. She has no FHX of colon cancer and she has never had a colonoscopy. She has diarrhea now, but that is only since she started an antibitoic for a cough. I recommend a probiotic supplement. After discussion, she opts to repeat Cologuard. ROV 8 weeks. Medications: On Hold peg 3350-electrolytes 236-22.74-6.74 -5.86 gram (Golytely) until fecal effluent is clear; do not exceed a total volume of 2,000 mL Hold Comment: Doctor's Order 240 mL PO Q10M 4,000 mL 0RF 1 day Z12.11 - Encounter for screening for malignant neoplasm of colon Coding Level of Care Code New Pt Level 3 (84028) Diagnoses Pre-op examination Z01.818
[2024-04-11 14:49] VITALS: BMI 31.3
== END 2024-04-11 15:04 | disposition home or self-care (01) ==
PROVIDERS: PCP Internal Medicine; Visit Provider Nurse Practitioner
DX: Z12.11 Encounter for screening for malignant neoplasm of colon (principal)
CPT/HCPCS: 99024

== ENCOUNTER → 2024-04-11 14:21 | Outpatient (BNVA) | payer MEDICARE, SELFPAY | PROVIDERS: PCP Internal Medicine; Visit Provider Nurse Practitioner | DX: Z12.11 Encounter for screening for malignant neoplasm of colon (principal) | CPT/HCPCS: 99212 ==

== ENCOUNTER 2024-06-06 13:46 | Outpatient (AMB) | payer MEDICARE, SELFPAY ==
--- NOTE | 2024-06-06 13:53 | A.OFFVIS_ITS ---
Vital Signs 06/06/24 13:55 Height 5 ft Weight 163 lb 9.328 oz BMI 31.9 BP 135/64 Blood Pressure Location Lt brachial Position Sitting Pulse 70 Intake Visit Reasons: Follow up Cologuard Intake Note: Patient in office today in follow up of cologuard. CC: The patient reports doing well today and denies having any GI concerns. 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 She has no FHX of colon cancer and she has never had a colonoscopy. She has diarrhea now, but that is only since she started an antibitoic for a cough. I recommend a probiotic supplement. After discussion, she opts to repeat Cologuard. ROV 8 weeks. Medications: On Hold peg 3350-electrolytes 236-22.74-6.74 -5.86 gram (Golytely) until fecal effluent is clear; do not exceed a total volume of 2,000 mL Hold Comment: Doctor's Order 240 mL PO Q10M 4,000 mL 0RF 1 day Z12.11 - Encounter for screening for malignant neoplasm of colon Cologuard results NEGATIVE TODAY'S VISIT I advised that the Cologuard is negative. With this she should repeat it every 3 years whether it be with this offers or with her primary care office. She does not need to consider colonoscopy unless she is having alarm signs and symptoms or returns a positive Cologuard study. [facility] Medical History Bronchitis Cough Encounter for general adult medical examination with abnormal findings Colon cancer screening Swelling of left knee joint Traumatic ecchymosis of left thigh Pain in left knee Injury of left knee Fall Acute pharyngitis Basal cell carcinoma Medicare annual wellness visit, initial Encounter for annual routine gynecological examination Impacted cerumen of both ears Arthritis of knee, right Hematuria, microscopic Lesion of ulnar nerve, left upper limb Lipid disorder Surgical History H/O section History of elbow surgery Family History Father No problems noted. Mother Diabetes Breast CA Social History Housing: Condominium Alcohol intake: never Patient Tobacco Use Status: Never used Tobacco e-Cigarette/Vaping Use: Never Used service: No Current occupational status: retired Cognitive needs: No Hearing needs: No Vision needs: No Review of Systems Const Denies fatigue, Denies fever(s), Denies night sweats, Denies poor appetite and Denies weight loss ENT Reports Normal hearing present, Denies dental pain, Denies dysphagia, Denies hearing loss, Denies mouth pain, Denies odynophagia, Denies throat swelling, Denies tongue swelling and Reports other (Dentition adequate) Card Reports no additional complaints Resp Reports no additional complaints GI Details: Denies abdominal pain, Denies melena, Denies bloating, Denies hematochezia, Denies constipation, Denies GI cramping, Denies dysphagia, Denies excessive flatus, Denies early satiety, Denies heartburn, Denies diarrhea, Denies nausea, Denies odynophagia, Denies vomiting and Denies hematemesis Skin/Breast Denies pruritus, Denies lesions, Denies rash and Denies jaundice Neuro Reports Normal hearing present and Denies Abnormal speech present Endo Denies fatigue Aller/Immun Denies throat swelling and Denies tongue swelling Physical Exam Vital Signs: Last Vital Signs Pulse 70 06/06/24 13:55 BP 135/64 06/06/24 13:55 BMI result Body Mass Index 31.9 Const General: cooperative, no acute distress, well developed and well groomed Nutritional Appearance: well nourished and obese Orientation/consciousness: oriented to person, oriented to place and oriented to time Limitations: No language barrier HEENT Head: Yes normocephalic and Yes atraumatic Eyes General: appearance normal, both eyes and all related structures Pupils: Equal, round and reactive pupils present Neck Neck: Yes normal visual inspection and Yes no lymphadenopathy Thyroid: Thyroid normal Resp Effort & Inspection: normal respiratory effort and able to speak in complete sentences Auscultation: clear to auscultation bilaterally Cardio Rate: regular rate Rhythm: regular rhythm Heart sounds: Normal, physiologic split S2 sound present Peripheral pulses: radial pulses present and posterior tibial pulses present GI Inspection: No distended, Yes Abdominal panniculus present and Yes obesity Palpation (GI): Soft to palpation, nontender, no guarding, not rigid and No hepatosplenomegaly present Percussion: Yes normal to percussion Auscultation: normal bowel sounds Rectal Exam - Female: deferred Skin General skin exam: no rashes or lesions noted, turgor normal, skin not dry, no jaundice, No spider nevi and no striae Rashes: no rashes Nails: normal Neuro General: oriented to person, oriented to place and oriented to time Cranial nerves: Yes Equal, round and reactive pupils present and Yes Normal hearing present Speech: No Abnormal speech present Gait exam (Neuro): Wide-based gait present Psych Appearance: grossly normal and well kempt Mental Status: mental status grossly normal Speech and movement: Normal speech and movement present Affect: normal affect Attitude: cooperative Thought process: Normal thought process present and not confabulating Thought content: Normal thought content present Insight: Fair insight present (Psych) Judgement: Fair judgement present (Psych) Assessment & Plan Assessment & Plan (1) Encounter for colorectal cancer screening using Cologuard test: Comment: 05/2024= negative Cologuard repeat in 3 years Code(s): Z12.11 - Encounter for screening for malignant neoplasm of colon; Z12.12 - Encounter for screening for malignant neoplasm of rectum Category: Medical Plan I advised that the Cologuard is negative. With this she should repeat it every 3 years whether it be with this offers or with her primary care office. She does not need to consider colonoscopy unless she is having alarm signs and symptoms or returns a positive Cologuard study. Coding Level of Care Code Est Pt Level 3 (46177) Diagnoses Encounter for colorectal cancer screening using Cologuard test Z12.11; Z12.12
[2024-06-06 13:55] VITALS: BP 135/64; PULSE 70; BMI 31.9
== END 2024-06-06 14:09 | disposition home or self-care (01) ==
PROVIDERS: PCP Internal Medicine; Visit Provider Nurse Practitioner
DX: Z71.2 Person consulting for explanation of examination or test findings (principal); Z12.11 Encounter for screening for malignant neoplasm of colon
CPT/HCPCS: 99024

== ENCOUNTER → 2024-06-06 13:46 | Outpatient (BNVA) | payer MEDICARE, SELFPAY | PROVIDERS: PCP Internal Medicine; Visit Provider Nurse Practitioner | DX: Z12.11 Encounter for screening for malignant neoplasm of colon (principal); Z12.12 Encounter for screening for malignant neoplasm of rectum | CPT/HCPCS: 99212 ==

== ENCOUNTER 2024-08-23 10:46 | Outpatient (AMB) | payer OTHER, SELFPAY ==
--- NOTE | 2024-08-23 10:52 | AM.OFFWIN_ITS ---
Intake Vital Signs 08/23/24 10:56 Height 5 ft Weight 164 lb BMI 32.0 BP 128/80 Blood Pressure Location Rt brachial Position Sitting Pulse 64 Pulse Source Pulse Oximeter Pulse Oximetry (%) 97 Oxygen Delivery Method Room Air Intake Visit Reasons: EP Rt leg pain after fall Intake Note: Patient here for right leg pain after a fall yesterday while walking through [facility]. Patient Tobacco Use Status: Never used Tobacco Allergies Penicillins [PENICILLINS] Allergy (Unknown, Verified 06/06/24 13:58) RASH Do you need a note to return to daycare/school/sports/work: No HPI HPI Comments History of Present Illness Details History of Present Illness The patient is a 74-year-old female presenting with lower leg pain following a fall. The incident occurred yesterday. The patient was at [facility] for her 's procedure when she experienced a fall while walking down a hallway. The fall occurred with the patient landing on her right side, specifically the lateral aspect of her knee and calf area. Since the fall, she has experienced swelling and soreness in the lower leg, although she reports no pain upon press ure being applied to the knee and denies any head trauma or loss of consciousness during the fall. There is no history of bleeding disorders or anticoagulant use that would increase the risk of bleeding. The pain worsened last night, and she describes the sensation as sore, but she can ambulate cautiously. She has utilized ice and acetaminophen for arthritis, which has offered some relief. She does not have a known history of osteopenia or osteoporosis and did not opt for immediate imaging but is considering an x-ray if symptoms do not improve within a few days. Physical Exam General: Cooperative, healthy appearing, comfortable, no acute distress and well developed Orientation: Patient oriented x3 Limitations: No limitations Head: Normal to inspection Ears: Hearing grossly normal bilaterally Nose: Normal external nose present Face and sinus: Normal facial exam Eyes: Appearance normal, both eyes and all related structures Neck: Normal visual inspection and Yes full ROM Respiratory: Normal respiratory effort and able to speak in complete sentences. Clear to auscultation bilaterally Cardiovascular: Regular rate and rhythm. Normal S1 and S2 Skin: No rashes or lesions noted Neuro: Patient oriented x3 Extremities: Right lower leg appears swollen, with a small abrasion noted just above the ankle. No TTP. Full range of motion in the knee, no TTP knee, no laxity in the ligaments of the knee. Normal gait. [facility] Medical History Bronchitis Cough Encounter for general adult medical examination with abnormal findings Colon cancer screening Swelling of left knee joint Traumatic ecchymosis of left thigh Pain in left knee Injury of left knee Fall Acute pharyngitis Basal cell carcinoma Medicare annual wellness visit, initial Encounter for annual routine gynecological examination Impacted cerumen of both ears Arthritis of knee, right Hematuria, microscopic Lesion of ulnar nerve, left upper limb Lipid disorder Surgical History H/O section History of elbow surgery Family History Father No problems noted. Mother Diabetes Breast CA Social History Housing: Condominium Alcohol intake: never Patient Tobacco Use Status: Never used Tobacco e-Cigarette/Vaping Use: Never Used service: No Current occupational status: retired Cognitive needs: No Hearing needs: No Vision needs: No Review of Systems Const All systems reviewed & are unremarkable except as noted in HPI and below Physical Exam Vital Signs: Last Vital Signs Pulse 44 L 08/23/24 10:56 BP 128/80 08/23/24 10:56 Pulse Ox 94 08/23/24 10:56 Oxygen Delivery Method Room Air 08/23/24 10:56 BMI result Body Mass Index 32.0 Assessment & Plan Assessment & Plan (1) Lower extremity pain, right: Code(s): M79.604 - Pain in right leg Plan: Plan - Recommend rest and ice application to the affected lower leg to manage swelling and pain. - Advise use of non-steroidal anti-inflammatory drugs, specifically Aleve, for improved anti-inflammatory effect compared to acetaminophen. - Discuss the option of an x-ray to assess for possible bone injury, with instructions to return for imaging if symptoms do not improve within a few days. - Encourage follow-up with the primary care physician, Dr. Garcia, or return to urgent care if condition worsens or fails to improve. - Reassure patient that ability to ambulate and absence of severe pain on palpation are positive indicators against severe injury, but vigilance for bone density issues like osteopenia is advised due to age. Patient was informed and verbally consented to the use of an ambient scribe for clinic note documentation during this visit. Orders: Orders XR tibia fibula RT 2V Today M79.604 - Pain in right leg Coding Level of Care Code Est Pt Level 3 (47134) Diagnoses Lower extremity pain, right M79.608
[2024-08-23 10:56] VITALS: BP 128/80; PULSE 64; O2SAT 97; BMI 32.0
== END 2024-08-23 11:23 | disposition home or self-care (01) ==
PROVIDERS: PCP Internal Medicine; Visit Provider Physician Assistant
DX: M79.604 Pain in right leg (principal)

== ENCOUNTER 2024-08-23 11:38 | Outpatient (REF) | payer OTHER, SELFPAY ==
--- NOTE | ~2024-08-23 | XR_ITS ---
EXAMINATION: XR TIBIA AND FIBULA, RIGHT CLINICAL INFORMATION: M79.604 - Pain in right leg COMPARISON: None available. TECHNIQUE: AP and lateral views of the right tibia and fibula were obtained. FINDINGS: No evidence of acute fracture or malalignment. No suspicious lytic or blastic osseous lesions seen. Knee and ankle joint articulation is maintained. No abnormal soft tissue calcification. XR/XR tibia fibula RT 2V IMPRESSION: No acute osseous abnormality Electronically signed by: Brett Li MD 08/23/2024 02:40 PM EST
== END 2024-08-23 11:39 | disposition home or self-care (01) ==
LOC: HO.HMGCX 11:38
PROVIDERS: PCP Internal Medicine; Visit Provider Physician Assistant
DX: M79.604 Pain in right leg (principal)
CPT/HCPCS: 73590; 99212

== ENCOUNTER 2024-09-18 11:03 | Outpatient (AMB) | payer MEDICARE, SELFPAY ==
[2024-09-18 11:10] VITALS: BP 124/76; PULSE 75; O2SAT 98; BMI 31.3
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
== END 2024-09-18 11:25 | disposition home or self-care (01) ==
PROVIDERS: PCP Internal Medicine; Visit Provider Internal Medicine
DX: M17.12 Unilateral primary osteoarthritis, left knee (principal); R29.6 Repeated falls; F43.20 Adjustment disorder, unspecified; Z63.4 Disappearance and death of family member; E78.9 Disorder of lipoprotein metabolism, unspecified; G56.22 Lesion of ulnar nerve, left upper limb; E66.09 Other obesity due to excess calories; Z68.33 Body mass index [BMI] 33.0-33.9, adult; M15.9 Polyosteoarthritis, unspecified

== ENCOUNTER → 2024-09-18 11:03 | Outpatient (BNVA) | payer MEDICARE, SELFPAY | PROVIDERS: PCP Internal Medicine; Visit Provider Internal Medicine | DX: M17.12 Unilateral primary osteoarthritis, left knee (principal); R29.6 Repeated falls; F43.20 Adjustment disorder, unspecified; E78.9 Disorder of lipoprotein metabolism, unspecified; G56.22 Lesion of ulnar nerve, left upper limb; E66.09 Other obesity due to excess calories; Z68.33 Body mass index [BMI] 33.0-33.9, adult; Z63.4 Disappearance and death of family member | CPT/HCPCS: 96127; 99212 ==

== ENCOUNTER 2024-09-19 10:03 | Outpatient (REF) | payer OTHER, SELFPAY ==
[2024-09-19 13:04] LABS: MANUAL DIFF FLAG NO
[2024-09-19 13:11] LABS: Basophils Absolute Auto 0.1 X10*3/uL (0.0-0.2); Basophils Percent Auto 0.5 % (0-2); Eosinophils Absolute Auto 0.2 X10*3/uL (0.0-0.4); Hematocrit 46.1 % (37.0-47.0); Hemoglobin 15.2 g/dl (12.0-16.0); Imm Gran Abs Auto 0.02 X10*3/uL (0.00-0.03); Imm Gran Pct Auto 0.2 % (0.0-0.4); Lymphocytes Absolute Auto 2.8 X10*3/uL (1.2-4.9); Lymphocytes Percent Auto 27.2 % (20-40); Mean Corpuscular Hemoglobin 30.9 pg (27.0-33.0); Mean Corpuscular Volume 93.7 fL (80.0-98.0); Mean Platelet Volume 10.9 fL (9.4-12.3); Monocytes Absolute Auto 0.8 X10*3/uL (0.1-1.2); Monocytes Percent Auto 7.5 % (2-11); Neutrophils Absolute Auto 6.5 x10*3/uL (2.0-8.3); Neutrophils Percent Auto 62.6 % (45-73); Platelet Count 283 X10*3/uL (160-400); Red Blood Count 4.92 X10*6/uL (4.20-5.50); Red Cell Distribution Width 12.8 % (11.0-16.0); White Blood Count 10.3 X10*3/uL (4.8-10.8)
[2024-09-19 13:36] LABS: Alanine Aminotransferase 21 U/L (0-31); Albumin Level 4.2 g/dL (3.5-5.0); Alkaline Phosphatase 76 U/L (39-117); Anion Gap 12 (12-20); Aspartate Amino Transferase 26 U/L (5-31); Bilirubin Total 0.9 mg/dL (0.0-1.0); Blood Urea Nitrogen 14 mg/dL (9-16); Calcium 9.4 mg/dL (8.4-10.2); Carbon Dioxide 29 mmol/L (22-29); Chloride 105 mmol/L (96-108); Cholesterol 198 mg/dL (<200); Estimated Glomerular Filt Rate > 60; Glucose Fasting 94 mg/dL (60-99); HDL Cholesterol 52 mg/dL (>40); LDL Cholesterol Calculated 115 mg/dL (<100); Potassium 4.4 mmol/L (3.3-5.1); Sodium 142 mmol/L (135-145); Total Protein 7.4 g/dL (6.5-8.0); Triglycerides 157 mg/dL (<150)
== END 2024-09-19 10:04 | disposition home or self-care (01) ==
LOC: HO.HMGCLDS 10:03
PROVIDERS: PCP Internal Medicine; Visit Provider Internal Medicine
DX: E78.9 Disorder of lipoprotein metabolism, unspecified (principal); F41.1 Generalized anxiety disorder; E66.09 Other obesity due to excess calories; Z68.33 Body mass index [BMI] 33.0-33.9, adult; R73.01 Impaired fasting glucose
CPT/HCPCS: 36415; 80053; 80061; 85025

== ENCOUNTER 2024-10-12 10:35 | Outpatient (AMB) | payer MEDICARE, SELFPAY ==
--- NOTE | 2024-10-12 10:36 | A.OFFVIS_ITS ---
Vital Signs 10/12/24 10:38 Height 5 ft Weight 160 lb 8 oz BMI 31.3 Intake Visit Reasons: [employer]- left knee pain, DOI August, Intake Note: Temitope is a 74 year old female who presents today for evaluation of her left knee pain, fell going up the stairs on August,. Patient reports episodes of sharp pains on her patella. Patient denies numbness or tingling. She is taking Tylenol Arthitis for pain, with relief. Denies prior surgeries to the left knee however she has had multiple falls affecting her left knee. She is using a cane to aid with ambulation due to her subsequent falls. Allergies Penicillins [PENICILLINS] Allergy (Unknown, Verified 10/12/24 10:41) RASH HPI HPI [employer] SU[employer]OR- left knee pain, DOI August,: Details: Temitope is a 74 year old female who presents today for evaluation of her left knee pain, fell going up the stairs on August,. Patient reports episodes of sharp pains on her patella. Patient denies numbness or tingling. She is taking Tylenol Arthitis for pain, with relief. Denies prior surgeries to the left knee however she has had multiple falls affecting her left knee. She is using a cane to aid with ambulation due to her subsequent falls. [facility] Medical History Bronchitis Cough Encounter for general adult medical examination with abnormal findings Colon cancer screening Swelling of left knee joint Traumatic ecchymosis of left thigh Pain in left knee Injury of left knee Fall Acute pharyngitis Basal cell carcinoma Medicare annual wellness visit, initial Encounter for annual routine gynecological examination Impacted cerumen of both ears Arthritis of knee, right Hematuria, microscopic Lesion of ulnar nerve, left upper limb Lipid disorder Surgical History H/O section History of elbow surgery Family History Father No problems noted. Mother Diabetes Breast CA Social History Housing: Condominium Alcohol intake: never Patient Tobacco Use Status: Never used Tobacco e-Cigarette/Vaping Use: Never Used service: No Current occupational status: retired Cognitive needs: No Hearing needs: No Vision needs: No Review of Systems Const All systems reviewed & are unremarkable except as noted in HPI and below Physical Exam Vital Signs: BMI result Body Mass Index 31.3 Extrem Other: Patient's left knee normal to inspection No erythema, ecchymosis, edema noted No lacerations, abrasions, open areas No evidence of infection Patient reports no tenderness to palpation of the medial and lateral joint lines, patella, posterior knee, or elsewhere in the left knee Negative Miguel's No ligamentous laxity with varus and valgus testing Negative anterior drawer Distal sensation intact Capillary refill brisk Office Procedures Joint Inj/Aspir; Non-Pain Clin Joint Injection/Drain Prep: site was prepped using aseptic technique and injection warnings given Approach Used: anterolateral Procedure: The patient tolerated the procedure well, but had some pain with the injection and there was some relief with the local anesthesia Shoulders, Hips, Knees, Knee Large Joint Injection [id number]: Left Knee Coding Procedure code (CPT) selection complete Results Reviewed Results Reviewed: X-rays obtained in the office today and independently reviewed by me, Sandip Mccullough PA-C, demonstrate moderate arthritic changes in the left knee, worst in the medial compartment. Assessment & Plan Assessment & Plan (1) Osteoarthritis of left knee: Code(s): M17.12 - Unilateral primary osteoarthritis, left knee Category: Medical Qualifiers: Osteoarthritis type: primary Qualified Code(s): M17.12 - Unilateral primary osteoarthritis, left knee Plan 1. Osteoarthritis of left knee I discussed this condition with the patient Discussed the treatment Options available Patient would like to proceed with steroid injection The risks and benefits of a steroid injection including but not limited to risk of damage to blood vessels, nerves, tendons, infection, skin bleaching, failure to improve symptoms, increased pain, and possible need for further injections or other intervention were discussed with the patient and the patient wishes to proceed with the steroid injection. Once consent was obtained, I aseptically prepped the area over the anterolateral joint line of the left knee. I then injected the area over the lateral epicondyle with a combination of [80/40] mg of dexamethasone and 8 mL of 1% lidocaine. The patient tolerated the procedure well with no complications. If the patient continues to experience symptoms over the following few weeks or months, they can make an appointment to return and discuss alternative treatment measures, such as physical therapy. Follow-up prn Orders: Orders XR knee RT 1V 10/12/24 M25.561 - Pain in right knee Coding Level of Care Code New Pt Level 3 (01359) Diagnoses Primary osteoarthritis of left knee M17.12 Osteoarthritis type: primary CPT Codes Shoulders, Hips, Knees, - Knee Large Joint Injection : Left Knee ([id number])
[2024-10-12 10:38] VITALS: BMI 31.3
--- OUTSIDE RECORDS SUMMARY | 2024-10-12 11:17 | XMS_ITS | Clinical Summary ---
Author Organization [facility] Address [id number] [place] [id number] Care Team Providers Care Rehabilitation Inspector Name Role Phone Maximiliano Garcia MD Primary Care Provider Surgical History Surgery Date Site/Laterality Comments SECTION PROCEDURE: [place] DELIVERY ONLY; COMMENT: times two Medical History Medical History Date Comments Pure hypercholesterolemia 08/25/2006 DX:Pur e hypercholesterolemia Carpal tunnel syndrome DX:Carpal tunnel syndrome Family History Medical History Relation Name Comments Coronary artery disease Father Other: breast lump Mother had lumpe ctomy Relation Name Status Comments Father Mother Social History Tobacco Use Types Packs/Day Years Used Date Smoking Tobacco: Never Alcohol Use Standard Drinks/Week Comments Yes 0 (1 standard drink = 0.6 oz pur e alcohol) Sex and Gender Information Value Date Recorded Sex Assigned at Not on file Gender Identity Not on file Sexual Orientation Not on file Obstetrics History Plan of Treatment Health Maintenance Due Date Last Done Comments Breast Cancer Screening 1952 DTaP,Tdap,and Td Vaccines (1 - Tdap) 1971 Zoster Vaccines (1 of 2) 2002 Pneumococcal Vaccine: 65+ Ye ars (1 of 1 - PCV) 2017 COVID-19 Vaccine ( - 2023-2 5 season) 2024 Influenza Vaccine (#1) 2024 RSV Immunization Patients 60 + Years Old (1 - 1-dose 75+ series) 2027 HIB Vaccines Aged Out No longer eligi ble based on patient's age to complete this topic HPV Vaccines Aged Out No longer eligi ble based on patient's age to complete this topic Hepatitis A Vaccines Aged Out No long er eligible based on patient's age to complete this topic Hepatitis B Vaccines Aged Out No long er eligible based on patient's age to complete this topic IPV Vaccines Aged Out No longer eligi ble based on patient's age to complete this topic MMR Vaccines Aged Out No longer eligi ble based on patient's age to complete this topic Meningococcal ACWY Vaccine Aged Out N o longer eligible based on patient's age to complete this topic RSV Immunization Patients Un ananth 20 months Aged Out No longer eligible b ased on patient's age to complete this topic Varicella Vaccines Aged Out No longer eligible based on patient's age to complete this topic Care Teams Rehabilitation Inspector Relationship Specialty Start Date End Date Maximiliano Garcia MD [address] [place] [id number] PCP - General Internal Medicine 02/06/16
== END 2024-10-12 12:44 | disposition home or self-care (01) ==
PROVIDERS: PCP Internal Medicine
DX: M17.12 Unilateral primary osteoarthritis, left knee (principal)
CPT/HCPCS: 20610; 99203

== ENCOUNTER 2024-10-12 10:43 | Outpatient (REF) | payer MEDICARE, SELFPAY ==
--- NOTE | ~2024-10-12 | XR_ITS ---
EXAMINATION: XR KNEE 3 VIEWS LEFT HISTORY: M25.562 - Pain in left knee COMPARISON: Comparison is made with the prior examination dated 05/13/2023. FINDINGS: Standing AP views of the bilateral knees and lateral and sunrise patellar views of the left knee are submitted. Osseous mineralization is normal. There is no fracture or dislocation. There is severe osteoarthritis of the medial compartment, with joint space narrowing and osteophyte formation. There is mild to moderate osteoarthritis of the lateral and patellofemoral compartments. There are calcifications of the popliteal artery. There is no joint effusion. XR/XR knee LT 3V IMPRESSION: Osteoarthritis of the left knee as described. Electronically signed by: Stone Rich MD 10/12/2024 02:39 PM JAZMINE TIMMONS
== END 2024-10-12 10:44 | disposition home or self-care (01) ==
LOC: HO.HOSX 10:43
PROVIDERS: Visit Provider Physician Assistant
DX: M17.12 Unilateral primary osteoarthritis, left knee (principal); M25.562 Pain in left knee
CPT/HCPCS: 20610; 73562; 99202; J1010; J2003

== ENCOUNTER → 2024-10-12 10:56 | Outpatient (BNV) | payer MEDICARE, SELFPAY | PROVIDERS: Visit Provider Radiology Diagnostic Radiology | DX: M25.562 Pain in left knee (principal) | CPT/HCPCS: 73562 ==

== ENCOUNTER 2024-12-21 12:17 | Outpatient (AMB) | payer MEDICARE, SELFPAY ==
[2024-12-21 12:18] VITALS: BP 122/78; PULSE 78; O2SAT 97; BMI 31.7
--- NOTE | 2024-12-21 12:18 | A.OFFPC_ITS ---
Vital Signs 12/21/24 12:18 Height 5 ft Weight 162 lb 2 oz BMI 31.7 BP 122/78 Blood Pressure Location Rt brachial Position Sitting Pulse 78 Pulse Source Pulse Oximeter Pulse Oximetry (%) 97 Oxygen Delivery Method Room Air Intake Visit Reasons: Annual PE Allergies Penicillins [PENICILLINS] Allergy (Unknown, Verified 12/21/24 12:18) RASH Medication List - Last Reconciled 12/21/24 by Maximiliano Garcia MD [cane with prongs As directed] gabapentin 100 mg PO DAILY 90 days glucosamine sulfate (Glucosamine) 500 mg PO DAILY peg 3350-electrolytes 236-22.74-6.74 -5.86 gram (Golytely) 240 mL PO Q10M 1 day simvastatin 40 mg PO BEDTIME 90 days Tobacco use date assessed: 12/21/24 Fall risk assessment: No Falls in past year Last assessed Fall Risk: 12/21/24 Dental Screening Dental Screen Date: 12/21/24 Did you have a dental visit in the last 12 months?: Yes Did you have a dental problem in the last 6 months where you did not have access to dental care?: No Was dental information given to patient?: Patient has dentist HPI Annual PE HPI Details Physical exam appointment - The patient is a 74-year-old female pr esenting with an annual health maintenance and chronic disease management visit. - Reported improvement in left knee pain post-cortisone injection in November 2022 with minimal subsequent pain. - Actively engages in therapy, contribut ing to the knee's condition post- injection. - Monitored hyperlipidemia managed with simvastatin. - Gabapentin is part of the current medi cation regimen for ongoing management. For left ulnar nerve injury chronic - No signs of diabetes or patient is pre diabetic - Underwent a mammogram in December 2021, w ith upcoming follow-up in January 2023 as per screening intervals. - Completed Cologuard test in 2023 with negative results. - Experiences bereavement and actively e ngages in therapy following the loss of a spouse to colon cancer in the previous year. Health Maintenance - Mammogram due for January 2023, last compl eted in December 2021. - Cologuard screening conducted in 2023, with negative results. - Continues annual health screening with cholesterol monitoring. [place] of Care The patient resides with her son, who is single, and receives support. Medications - Gabapentin for chronic pain management . - Simvastatin for hyperlipidemia control . Diagnostic results - Labs: Blood test conducted in September reported normal CBC, kidney function, liver enzymes, and cholesterol levels. Patient Instructions - Follow up with an annual mammogram in January 2023. - Continue therapy for knee pain and men ricky health support. - Maintain current medication regimen un til the next review. - Schedule regular follow-ups for blood pressure and cholesterol monitoring. And medication refill Q.6 months, labs are needed before visit order placed Review of Systems - General: No fever no chills - Neurological: No headaches no dizzin ess - Ear nose throat: No sore throat no hearing difficulty no ear pain - Cardiovascular: No syncope, no chest pain, no palpitations - Gastrointestinal: No nausea vomiting or diarrhea - Endocrine: No polyuria polydipsia no heat intolerance - Genitourinary: No dysuria - Skin: No new complaints Physical Exam General: Cooperative, healthy appearing, comfortable, no acute distress Orientation: Patient oriented x3 Head: Normal to inspection Ears: Within normal limit visually Nose: Normal external nose present Face and sinus: Normal facial exam Eyes: Appearance normal, extraocular movement intact pupils reactive Neck: Normal visual inspection and supple Respiratory: Normal respiratory effort and able to speak in complete sentences. Clear to auscultation, no stridor Cardiovascular: S1 and S2 RRR Breast exam benign GI: Normal to inspection. Soft to palpation and nontender Skin: Turgor normal, no acute findings Neuro: Patient oriented x3, motor sensory intact, balance intact Extremities: Slight swelling of left knee with limited range of motion, limited range of motion both shoulders to 90 degree chronic [facility] Medical History Encounter for general adult medical examination with abnormal findings Bronchitis Cough Colon cancer screening Swelling of left knee joint Traumatic ecchymosis of left thigh Pain in left knee Injury of left knee Fall Acute pharyngitis Basal cell carcinoma Medicare annual wellness visit, initial Encounter for annual routine gynecological examination Impacted cerumen of both ears Arthritis of knee, right Hematuria, microscopic Lesion of ulnar nerve, left upper limb Lipid disorder Surgical History H/O section History of elbow surgery Family History Father No problems noted. Mother Diabetes Breast CA Social History Housing: Condominium Alcohol intake: never Patient Tobacco Use Status: Never used Tobacco e-Cigarette/Vaping Use: Never Used service: No Current occupational status: retired Cognitive needs: No Hearing needs: No Vision needs: No Questionnaire PHQ-9 Over the last 2 weeks, how often have you been bothered by any of the following problems? 1. Little interest or pleasure in doing things: not at all 2. Feeling down, depressed, or hopeless: not at all 3. Trouble falling or staying asleep, or sleeping too much: not at all 4. Feeling tired or having little energy: not at all 5. Poor appetite or overeating: not at all 6. Feeling bad about yourself - or that you are a failure or have let yourself or your family down: not at all 7. Trouble concentrating on things, such as reading the newspaper or watching television: not at all 8. Moving or speaking so slowly that other people could have noticed. Or the opposite - being so fidgety or restless that you have been moving around a lot more than usual: not at all 9. Thoughts that you would be better off or of hurting yourself in some way: not at all Total score: 0 Depression Screening Interpretation: Negative Depression Screening Done: Yes 95451 - PHQ-9 Billing: Yes Source: Developed by Drs. Stone Mccain, Isamar Rayo, Kimani Garcia and colleagues, with an educational marycarmen from [employer]. Thrive Questionnaire Date Thrive assessed: 12/21/24 I am a: Patient What is your living situation today?: I have a steady place to live Within the past 12 months, did the food you bought not last and you didn't have the money to get more?: Sometimes True Within the past 12 months, did you worry whether your food would run out before you got money to buy more?: Sometimes True Do you have trouble paying for medicines?: No Do you have trouble getting transportation to medical appointments?: No Do you have trouble paying your heating and electricity bill?: No Do you have trouble taking care of your child, family member or friend?: No Do you have trouble with day-to-day activities such as bathing, preparing meals, shopping, managing finances, etc.?: No Are you currently unemployed and looking for a job?: No Are you interested in more education?: No Please select the resources that you would like help with: Transportation, Daily support and None Currently or been in a relationship where the following occur: No concerns reported THRIVE Score: 2 AUDIT C Alcohol Use Questionnaire (AUDIT-C) 1. How often do you have a drink containing alcohol?: Never 3. How often do you have six or more drinks on one occasion?: Never Total Score: 0 Score Reviewed/Action Taken: Yes KAILEE-7 AMB Questionnaire KAILEE-7 Date KAILEE - 7 assessed: 12/21/24 Feeling nervous, anxious, or on edge: 0 = Not at all Not being able to stop or control worryin = Not at all Worrying too much about different things: 1 = Several days Trouble relaxin = Not at all Being so restless that it is hard to sit still: 0 = Not at all Becoming easily annoyed or irritable: 0 = Not at all Feeling afraid as if something awful might happen: 0 = Not at all Total KAILEE-7 score (0-4 normal; 5-9 mild; 10-14 moderate; 15-21 severe): 1 Source: Developed by Drs. Stone Mccain, Isamar Rayo, Kimani Garcia and colleagues, with an educational marycarmen from [employer]. KAILEE-7 Assessment Billing KAILEE-7 Assessment Tool: KAILEE-7 Assessment 47380 Physical exam (Primary Care) Vital Signs: Last Vital Signs Pulse 78 12/21/24 12:18 BP 122/78 12/21/24 12:18 Pulse Ox 97 12/21/24 12:18 Oxygen Delivery Method Room Air 12/21/24 12:18 BMI result Body Mass Index 31.7 Tobacco/Smoking Status: Tobacco use Status Tobacco use date assessed 12/21/24 12/21/24 12:26 Patient Tobacco Use Status Never used Tobacco 12/21/24 12:26 e-Cigarette/Vaping Use Never Used 12/21/24 12:26 PHQ-9: PHQ-9 Score PHQ-9: Total score 0 12/21/24 12:26 Depression Screening Interpretation: Negative Thrive Assessment: Date of Thrive Assessment Date Thrive assessed 12/21/24 12/21/24 12:26 Currently or been in a relationship where the following occur: No concerns reported Coding Level of Care Code Est Pt Level 3 (98568) Est Pt Prev Care >65y(22590) Diagnoses Encounter for general adult medical examination with abnormal findings Z00.01 Lesion of ulnar nerve, left upper limb G56.22 Impaired fasting blood sugar R73.01 Lipid disorder E78.9 Primary osteoarthritis of left knee M17.12 Osteoarthritis type: primary Class 1 obesity due to excess calories with serious comorbidity and body mass index (BMI) of 33.0 to 33.9 in adult E66.09; Z68.33 Body mass index: BMI 33.0-33.9 Obesity classification: adult class 1 (BMI 30 - 34.9) Serious obesity comorbidity presence: with serious comorbidity Additional Codes KAILEE-7 Assessment Billing - KAILEE-7 Assessment Tool: KAILEE-7 Assessment 37162 ([id number]) PHQ-9 - 58265 - PHQ-9 Billing: Yes ([id number]) Assessment & Plan Assessment & Plan (1) Encounter for general adult medical examination with abnormal findings: Code(s): Z00.01 - Encounter for general adult medical examination with abnormal findings Category: Medical (2) Lesion of ulnar nerve, left upper limb: Code(s): G56.22 - Lesion of ulnar nerve, left upper limb Category: Medical (3) Impaired fasting blood sugar: Code(s): R73.01 - Impaired fasting glucose Category: Medical (4) Lipid disorder: Code(s): E78.9 - Disorder of lipoprotein metabolism, unspecified Category: Medical (5) Osteoarthritis of left knee: Code(s): M17.12 - Unilateral primary osteoarthritis, left knee Category: Medical Qualifiers: Osteoarthritis type: primary Qualified Code(s): M17.12 - Unilateral primary osteoarthritis, left knee (6) Obesity due to excess calories: Code(s): E66.09 - Other obesity due to excess calories Category: Medical Qualifiers: Body mass index: BMI 33.0-33.9 Obesity classification: adult class 1 (BMI 30 - 34.9) Serious obesity comorbidity presence: with serious comorbidity Qualified Code(s): E66.09 - Other obesity due to excess calories; Z68.33 - Body mass index [BMI] 33.0-33.9, adult Plan Physical exam appointment - The patient is a 74-year-old female presenting with an annual health maintenance and chronic disease management visit. - Reported improvement in left knee pain post-cortisone injection in November 2022 with minimal subsequent pain. - Actively engages in therapy, contributing to the knee's condition post- injection. - Monitored hyperlipidemia managed with simvastatin. - Gabapentin is part of the current medication regimen for ongoing management. For left ulnar nerve injury chronic - No signs of diabetes or patient is prediabetic - Underwent a mammogram in December 2021, with upcoming follow-up in January 2023 as per screening intervals. - Completed Cologuard test in 2023 with negative results. - Experiences bereavement and actively engages in therapy following the loss of a spouse to colon cancer in the previous year. Health Maintenance - Mammogram due for January 2023, last completed in December 2021. - Cologuard screening conducted in 2023, with negative results. - Continues annual health screening with cholesterol monitoring. [place] of Care The patient resides with her son, who is single, and receives support. Medications - Gabapentin for chronic pain management. - Simvastatin for hyperlipidemia control. Diagnostic results - Labs: Blood test conducted in September reported normal CBC, kidney function, liver enzymes, and cholesterol levels. Patient Instructions - Follow up with an annual mammogram in January 2023. - Continue therapy for knee pain and mental health support. - Maintain current medication regimen until the next review. - Schedule regular follow-ups for blood pressure and cholesterol monitoring. And medication refill Q.6 months, labs are needed before visit order placed Orders: Orders Complete Blood Count Auto Diff 5 Months E66.09 - Other obesity due to excess calories, E78.9 - Disorder of lipoprotein metabolism, unspecified, G56.22 - Lesion of ulnar nerve, left upper limb, M17.12 - Unilateral primary osteoarthritis, left knee, R73.01 - Impaired fasting glucose, Z00.01 - Encounter for general adult medical examination with abnormal findings, Z68.33 - Body mass index [BMI] 33.0-33.9, adult Comprehensive [place]. Panel Fast 5 Months E66.09 - Other obesity due to excess calories, E78.9 - Disorder of lipoprotein metabolism, unspecified, G56.22 - Lesion of ulnar nerve, left upper limb, M17.12 - Unilateral primary osteoarthritis, left knee, R73.01 - Impaired fasting glucose, Z00.01 - Encounter for general adult medical examination with abnormal findings, Z68.33 - Body mass index [BMI] 33.0-33.9, adult Lipid Panel 5 Months E66.09 - Other obesity due to excess calories, E78.9 - Disorder of lipoprotein metabolism, unspecified, G56.22 - Lesion of ulnar nerve, left upper limb, M17.12 - Unilateral primary osteoarthritis, left knee, R73.01 - Impaired fasting glucose, Z00.01 - Encounter for general adult medical examination with abnormal findings, Z68.33 - Body mass index [BMI] 33.0-33.9, adult Hemoglobin A1c 5 Months E66.09 - Other obesity due to excess calories, E78.9 - Disorder of lipoprotein metabolism, unspecified, G56.22 - Lesion of ulnar nerve, left upper limb, M17.12 - Unilateral primary osteoarthritis, left knee, R73.01 - Impaired fasting glucose, Z00.01 - Encounter for general adult medical e xamination with abnormal findings, Z68.33 - Body mass index [BMI] 33.0-33.9, adult Medications: Refilled simvastatin 40 mg PO BEDTIME 90 tabs 0RF 90 days
--- OUTSIDE RECORDS SUMMARY | 2024-12-21 13:01 | XMS_ITS | Clinical Summary ---
Author Organization [facility] Address [address] [place] [id number] Care Team Providers Care Assistant Credit Manager Name Role Phone Maximiliano Garcia MD Primary Care Provider [phone] Surgical History Surgery Date Site/Laterality Comments SECTION PROCEDURE: [place] DELIVERY ONLY; COMMENT: times two Medical History [...] drink = 0.6 oz pur e alcohol) Comments Unknown Sex and Gender Information Value Date Recorded Sex Assigned at Not on file Legal Sex Female 7:14 PM EST Gender Identity Not on file Sexual Orientation Not on file Obstetrics History Plan of Treatment Health Maintenance Due Date Last Done Comments Breast Cancer Screening 1950 DTaP,Tdap,and Td Vaccines (1 - Tdap) 1971 Pneumococcal Vaccine: 50+ Ye ars (1 of 1 - PCV) 2002 Zoster Vaccines (1 of 2) 2002 COVID-19 Vaccine ( - 2023-2 5 season) 2024 Influenza Vaccine (Season Ended) 2025 RSV Immunization Adult Patie nts (1 - 1-dose 75+ series) 2027 HIB [...] patient's age to complete this topic Meningococcal B Vaccine Aged Out No l onger eligible based on patient's age to complete this topic RSV Immunization Patients Un ananth 20 months Aged Out No longer eligible b ased on patient's age to complete this topic Varicella Vaccines Aged Out No longer eligible based on patient's age to complete this topic Care Teams Assistant Credit Manager Relationship Specialty Start Date End Date Maximiliano Garcia MD [address] [place] [phone] PCP - General Internal Medicine 02/06/16
== END 2024-12-21 12:44 | disposition home or self-care (01) ==
LOC: HO.HMCC 12:18
PROVIDERS: PCP Internal Medicine; Visit Provider Internal Medicine
DX: Z00.01 Encounter for general adult medical examination with abnormal findings (principal); G56.22 Lesion of ulnar nerve, left upper limb; R73.01 Impaired fasting glucose; E78.9 Disorder of lipoprotein metabolism, unspecified; M17.12 Unilateral primary osteoarthritis, left knee; E66.09 Other obesity due to excess calories; Z68.33 Body mass index [BMI] 33.0-33.9, adult

== ENCOUNTER → 2024-12-21 12:17 | Outpatient (BNVA) | payer OTHER, SELFPAY | PROVIDERS: PCP Internal Medicine; Visit Provider Internal Medicine | DX: Z00.01 Encounter for general adult medical examination with abnormal findings (principal); G56.22 Lesion of ulnar nerve, left upper limb; R73.01 Impaired fasting glucose; E78.9 Disorder of lipoprotein metabolism, unspecified; M17.12 Unilateral primary osteoarthritis, left knee; E66.09 Other obesity due to excess calories; Z68.33 Body mass index [BMI] 33.0-33.9, adult; Z71.3 Dietary counseling and surveillance | CPT/HCPCS: 96127; 99397 ==

== ENCOUNTER 2025-01-03 14:00 | Outpatient (RCR) | payer OTHER, SELFPAY ==
--- NOTE | 2024-12-20 12:40 | MHC.PT.EP ---
[facility] [place] Office [place] Office [place] Office [address] Hector Combs [address] [phone] F: [phone] F: [phone] F: [phone] F: [phone] Physical Therapy Plan of Care Date of Evaluation: 12/20/24 Date of Surgery: Diagnosis: OA of L knee Assessment: Patient is a 74 year old R handed female who presents with s/s consistent with OA of L knee, L knee pain. She does not work and lost her in September. She lives with her son. Patient past medical history includes chronic knee pain and basal cell carcinoma. Current impairments include pain, balance, posture, ROM, strength, activity tolerance and functional mobility. Functional limitations include decreased ability to stand, walk, negotiate stairs, squat, kneel, and transfer. Patient is motivated with good rehab potential. Skilled PT will address impairments and functional limitations in order to achieve goals. Frequency and Duration: The patient will be seen 2x/week for 5 weeks Short Term Goals: I with HEP - 2 weeks Full ext AROM - 2 weeks Flexion to 130 AROM - 3 weeks Usp Goals: SLB > 10 seconds - 5 weeks LEFS improved by 8 pts - 5 weeks Strength 4/5 grossly - 5 weeks gastroc flex WNL - 5 weeks 90/90 lacking < 24 b/l - 5 weeks Treatment Plan: Modalities to reduce pain, spasms and effusion. Manual therapy to restore motion and function. Therapeutic exercise to improve strength and flexibility. Neuromuscular re-education for posture and balance. Therapeutic activities to return to functional activities of daily living. Electronically signed by: Jose Luis Negro, PT Please sign and return to therapist. Thank you for your referral.
--- NOTE | 2025-03-22 09:36 | MHC.PT.DC ---
[facility] [place] Office [place] Office [place] Office [address] Hector Combs [address] [phone] F: [phone] F: [phone] F: [phone] F: [phone] Physical Therapy Discharge Report Diagnosis: OA of L knee Date of Surgery: Date of Evaluation: 12/20/24 Date of Discharge: Treatments to Date: 5 Cancellations to Date: No Shows to Date: Discharge Status: Improved Function Independent with HEP Discharge Summary: 01/03/25: pt on time. no adverse reactions. progressing well overall. we will continue 1 more week then d/c to HEP. 01/01; Pt RX modified due to time. Discussed importance of being on time to get a full session. No c/o pain with exs. 12/27/24: pt notes she has been practicing her exercises and feeling better overall. we will add stairs next visit. 12/25; Pt fatigued after exs. Pt tight gastroc,HS stretch. Patient is a 74 year old R handed female who presents with s/s consistent with OA of L knee, L knee pain. She does not work and lost her in September. She lives with her son. Patient past medical history includes chronic knee pain and basal cell carcinoma. Current impairments include pain, balance, posture, ROM, strength, activity tolerance and functional mobility. Functional limitations include decreased ability to stand, walk, negotiate stairs, squat, kneel, and transfer. Patient is motivated with good rehab potential. Skilled PT will address impairments and functional limitations in order to achieve goals. Electronically signed by: Jose Luis Negro, PT Please sign and return to therapist. Thank you for your referral.
== END 2025-03-22 09:36 | disposition home or self-care (01) ==
LOC: HO.PTCHIC 14:00
PROVIDERS: PCP Internal Medicine
DX: M17.12 Unilateral primary osteoarthritis, left knee (principal)
CPT/HCPCS: 97110; 97162

== ENCOUNTER → 2025-01-11 14:45 | Outpatient (BNV) | payer OTHER, SELFPAY | PROVIDERS: PCP Internal Medicine; Visit Provider Internal Medicine | DX: Z12.31 Encounter for screening mammogram for malignant neoplasm of breast (principal) | CPT/HCPCS: 77063; 77067 ==

== ENCOUNTER 2025-01-11 14:52 | Outpatient (REF) | payer MEDICARE, SELFPAY ==
--- OUTSIDE RECORDS SUMMARY | 2025-01-11 14:56 | XMS_ITS | Clinical Summary ---
Author Organization [facility] Address [address] [place] [phone] Care Team Providers Care Vp Analytics Name Role Phone Maximiliano Garcia MD Primary Care Provider [phone] Surgical History Surgery Date Site/Laterality Comments SECTION PROCEDURE: [place] DELIVERY ONLY; COMMENT: times two Medical History [...] age to complete this topic Care Teams Vp Analytics Relationship Specialty Start Date End Date Maximiliano Garcia MD [address] [place] [id number] PCP - General Internal Medicine 02/06/16
== END 2025-01-11 14:53 | disposition home or self-care (01) ==
LOC: HO.MAMMO 14:52
PROVIDERS: PCP Internal Medicine; Visit Provider Internal Medicine
DX: Z12.31 Encounter for screening mammogram for malignant neoplasm of breast (principal)
CPT/HCPCS: 77063; 77067

== ENCOUNTER 2025-07-09 10:59 | Outpatient (AMB) | payer MEDICARE, SELFPAY ==
--- NOTE | 2025-07-09 11:00 | MHC.PC.OV ---
Vital Signs 07/09/25 11:01 Height 5 ft Weight 165 lb 8 oz BMI 32.3 BP 140/64 H Blood Pressure Location Rt brachial Position Sitting Respiration 16 Pulse 102 H Pulse Source Pulse Oximeter Pulse Oximetry (%) 93 Oxygen Delivery Method Room Air Intake Visit Reasons: 6 months f/up Allergies Penicillins (PENICILLINS) Allergy (Unknown, Verified 12/21/24 12:18) [facility] Medication List - Last Reconciled 07/09/25 by Maximiliano Garcia MD [cane with prongs As directed] gabapentin 100 mg PO DAILY 90 days glucosamine sulfate (Glucosamine) 500 mg PO DAILY peg 3350-electrolytes 236-22.74-6.74 -5.86 gram (Golytely) 240 mL PO Q10M 1 day Held on 04/11/24. Instructions: Doctor's Order simvastatin 40 mg PO BEDTIME 90 days Tobacco use date assessed: 12/21/24 Dental Screening Dental Screen Date: 12/21/24 HPI 6 months f/up HPI Details - The patient is a 74-year-old female presenting with an annual health maintenance and chronic disease management visit. - The patient had a high blood pressure reading during the visit, which is unusual for her. Hyperlipidemia: - The patient is taking simvastatin for cholesterol management. - She requires liver function monitoring every six months due to her medication. Osteoarthritis of the knee: - The patient reports intermittent knee pain secondary to arthritis. - She received a cortisone injection in her left knee at the end of September, which provided relief, and she does not feel she needs another one at this time. - She manages occasional severe pain with Tylenol with Arthritis and a topical pain reliever. Medication Management: - The patient independently discontinued gabapentin 100 mg last week, believing she no longer needed it. Mental Health Status: - The patient is currently attending therapy, which she finds somewhat helpful for depression Medical History: - Hypertension, intermittently elevated - Hyperlipidemia, on medication - Osteoarthritis of the left knee, status post cortisone injection in September - History of receiving mental health therapy Medications: - Simvastatin for hyperlipidemia, taken at night - Gabapentin 100 mg, recently self-discontinued - Tylenol with Arthritis as needed for knee pain - Topical pain reliever (e.g., Aspercreme) as needed for knee pain Social History:. - She experienced a recent family loss; her [id number] last week. - She is currently receiving therapy and finds it somewhat helpful. - The patient has been contacted by her insurance ([facility]) regarding needs for housekeeping assistance and durable medical equipment for the shower. - She currently has an old grab bar on the tub and a shower chair. Problem List - Hypertension - Hyperlipidemia - Osteoarthritis of the knee - Health Maintenance: Requires fasting labs for medication monitoring and influenza vaccination. - Need for durable medical equipment (DME): Requires assessment for a shower grab bar. Plan - Hypertension: Blood pressure will be monitored and rechecked at the next appointment to ensure it is not persistently elevated. - Hyperlipidemia: The patient is to complete fasting blood work tomorrow to monitor liver function due to simvastatin use. An order is already in the system. - Osteoarthritis of the knee: Continue managing with Tylenol with Arthritis and topical pain relievers as needed. - Medication Management: Approved discontinuation of gabapentin; the patient was advised to dispose of the remaining pills. Continue simvastatin. - Preventative Care: Recommended the patient get her flu vaccine at a pharmacy. - Durable Medical Equipment: The patient will assess her need for a new shower grab bar and inform the office, which will then place an order for her. she is not sure exactly what she need she will provide with more info - Mental Health: Continue with therapy. The patient was advised to call if she feels she needs medication. - Follow-up: The patient has a follow-up appointment scheduled for December. Review of Systems - General: no fever no chills - Neurological: No headaches no dizziness - Ear nose throat: No sore throat no hearing difficulty no ear pain - Cardiovascular: No syncope, no chest pain, no palpitations - Gastrointestinal: No nausea vomiting or diarrhea - Endocrine: No polyuria polydipsia no heat intolerance - Genitourinary: No dysuria , no blood in urine Physical Exam General: No acute distress HEENT: No acute findings Neck: Supple Respiratory system: Able to talk in full sentences, no audible wheeze cardiovascular: S1-S2 regular in rate and rhythm Gastrointestinal: No pain Extremities: Left knee seems to be okay, no new findings [employer]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 awake oriented x3 motor sensory intact Skin: Normal turgor [facility] Medical History Encounter for general adult medical examination with abnormal findings Bronchitis Cough Colon cancer screening Swelling of left knee joint Traumatic ecchymosis of left thigh Pain in left knee Injury of left knee Fall Acute pharyngitis Basal cell carcinoma Medicare annual wellness visit, initial Encounter for annual routine gynecological examination Impacted cerumen of both ears Arthritis of knee, right Hematuria, microscopic Lesion of ulnar nerve, left upper limb Lipid disorder Surgical History H/O section History of elbow surgery Family History Father No problems noted. Mother Diabetes Breast CA Social History Housing: Condominium Alcohol intake: never Patient Tobacco Use Status: Never used Tobacco e-Cigarette/Vaping Use: Never Used service: No Current occupational status: retired Cognitive needs: No Hearing needs: No Vision needs: No Questionnaire Thrive Questionnaire Date Thrive assessed: 12/21/24 I am a: Patient What is your living situation today?: I have a steady place to live Within the past 12 months, did the food you bought not last and you didn't have the money to get more?: Sometimes True Within the past 12 months, did you worry whether your food would run out before you got money to buy more?: Sometimes True Do you have trouble paying for medicines?: No Do you have trouble getting transportation to medical appointments?: No Do you have trouble paying your heating and electricity bill?: No Do you have trouble taking care of your child, family member or friend?: No Do you have trouble with day-to-day activities such as bathing, preparing meals, shopping, managing finances, etc.?: No Are you currently unemployed and looking for a job?: No Are you interested in more education?: No Currently or been in a relationship where the following occur: No concerns reported THRIVE Score: 2 KAILEE-7 AMB Questionnaire KAILEE-7 Date KAILEE - 7 assessed: 12/21/24 Source: Developed by Drs. Stone Mccain, Isamar Rayo, Kimani Garcia and colleagues, with an educational marycarmen from [employer]. Physical exam (Primary Care) Vital Signs: Last Vital Signs Pulse 102 H 07/09/25 11:01 Resp 16 07/09/25 11:01 BP 140/64 H 07/09/25 11:01 Pulse Ox 93 07/09/25 11:01 Oxygen Delivery Method Room Air 07/09/25 11:01 BMI result Body Mass Index 32.3 Tobacco/Smoking Status: Tobacco use Status Tobacco use date assessed 12/21/24 07/09/25 11:08 Patient Tobacco Use Status Never used Tobacco 07/09/25 11:08 e-Cigarette/Vaping Use Never Used 07/09/25 11:08 Thrive Assessment: Date of Thrive Assessment Date Thrive assessed 12/21/24 07/09/25 11:08 Currently or been in a relationship where the following occur: No concerns reported Coding Level of Care Code Est Pt Level 3 (02555) Complex EM visit Add On G2211 Diagnoses Primary osteoarthritis of left knee M17.12 Osteoarthritis type: primary Lipid disorder E78.9 Impaired fasting blood sugar R73.01 Assessment & Plan Assessment & Plan (1) Osteoarthritis of left knee: Code(s): M17.12 - Unilateral primary osteoarthritis, left knee Category: Medical Qualifiers: Osteoarthritis type: primary Qualified Code(s): M17.12 - Unilateral primary osteoarthritis, left knee (2) Lipid disorder: Code(s): E78.9 - Disorder of lipoprotein metabolism, unspecified Category: Medical (3) Impaired fasting blood sugar: Code(s): R73.01 - Impaired fasting glucose Category: Medical Plan - The patient had a high blood pressure reading during the visit, which is unusual for her. Hyperlipidemia: - The patient is taking simvastatin for cholesterol management. - She requires liver function monitoring every six months due to her medication. Osteoarthritis of the knee: - The patient reports intermittent knee pain secondary to arthritis. - She received a cortisone injection in her left knee at the end of September, which provided relief, and she does not feel she needs another one at this time. - She manages occasional severe pain with Tylenol with Arthritis and a topical pain reliever. Medication Management: - The patient independently discontinued gabapentin 100 mg last week, believing she no longer needed it. Mental Health Status: - The patient is currently attending therapy, which she finds somewhat helpful for depression Medical History: - Hypertension, intermittently elevated - Hyperlipidemia, on medication - Osteoarthritis of the left knee, status post cortisone injection in September - History of receiving mental health therapy Medications: - Simvastatin for hyperlipidemia, taken at night - Gabapentin 100 mg, recently self-discontinued - Tylenol with Arthritis as needed for knee pain - Topical pain reliever (e.g., Aspercreme) as needed for knee pain Social History:. - She experienced a recent family loss; her [id number] last week. - She is currently receiving therapy and finds it somewhat helpful. - The patient has been contacted by her insurance ([facility]) regarding needs for housekeeping assistance and durable medical equipment for the shower. - She currently has an old grab bar on the tub and a shower chair. Problem List - Hypertension - Hyperlipidemia - Osteoarthritis of the knee - Health Maintenance: Requires fasting labs for medication monitoring and influenza vaccination. - Need for durable medical equipment (DME): Requires assessment for a shower grab bar. Plan - Hypertension: Blood pressure will be monitored and rechecked at the next appointment to ensure it is not persistently elevated. - Hyperlipidemia: The patient is to complete fasting blood work tomorrow to monitor liver function due to simvastatin use. An order is already in the system. - Osteoarthritis of the knee: Continue managing with Tylenol with Arthritis and topical pain relievers as needed. - Medication Management: Approved discontinuation of gabapentin; the patient was advised to dispose of the remaining pills. Continue simvastatin. - Preventative Care: Recommended the patient get her flu vaccine at a pharmacy. - Durable Medical Equipment: The patient will assess her need for a new shower grab bar and inform the office, which will then place an order for her. she is not sure exactly what she need she will provide with more info - Mental Health: Continue with therapy. The patient was advised to call if she feels she needs medication. - Follow-up: The patient has a follow-up appointment scheduled for December. Medications: Discontinued gabapentin Discontinued Reason: Doctor's Order 100 mg PO DAILY 90 days 90 caps 1RF G56.22 - Lesion of ulnar nerve, left upper limb
[2025-07-09 11:01] VITALS: BP 140/64; PULSE 102; RESP 16; O2SAT 93; BMI 32.3
--- OUTSIDE RECORDS SUMMARY | 2025-07-09 14:09 | XMS_ITS | Clinical Summary ---
Author Organization [facility] Address [id number] [place] [id number] Care Team Providers Care Paper Core Machine Operator Name Role Phone Maximiliano Garcia MD Primary Care Provider [phone] Surgical History Surgery Date Site/Laterality Comments SECTION PROCEDURE: IA DELIVERY ONLY; COMMENT: times two Medical History [...] 2002 Zoster Vaccines (1 of 2) 2002 Depression Screening 09/12/2024 COVID-19 Vaccine ( - 2023-2 5 season) 2025 Influenza Vaccine (#1) 2025 RSV Immunization Adult Patie nts (1 [...] age to complete this topic Care Teams Paper Core Machine Operator Relationship Specialty Start Date End Date Maximiliano Garcia MD [address] [place] [phone] PCP - General Internal Medicine 02/06/16
== END 2025-07-09 11:25 | disposition home or self-care (01) ==
LOC: HO.HMCC 11:00
PROVIDERS: PCP Internal Medicine; Visit Provider Internal Medicine
DX: M17.12 Unilateral primary osteoarthritis, left knee (principal); E78.9 Disorder of lipoprotein metabolism, unspecified; R73.01 Impaired fasting glucose

== ENCOUNTER → 2025-07-09 10:59 | Outpatient (BNVA) | payer MEDICARE, SELFPAY | PROVIDERS: PCP Internal Medicine; Visit Provider Internal Medicine | DX: M17.12 Unilateral primary osteoarthritis, left knee (principal); E78.9 Disorder of lipoprotein metabolism, unspecified; R73.01 Impaired fasting glucose; E78.5 Hyperlipidemia, unspecified; I10 Essential (primary) hypertension; Z79.899 Other long term (current) drug therapy; G56.22 Lesion of ulnar nerve, left upper limb | CPT/HCPCS: 99212 ==

== ENCOUNTER 2025-07-10 10:18 | Outpatient (REF) | payer MEDICARE, SELFPAY ==
--- OUTSIDE RECORDS SUMMARY | 2025-07-10 12:48 | XMS_ITS | Clinical Summary ---
Author Organization [facility] Address [address] [place] [id number] Care Team Providers Care Director Of Event Marketing Name Role Phone Maximiliano Garcia MD Primary Care Provider [phone] Surgical History Surgery Date Site/Laterality Comments SECTION [...] age to complete this topic Care Teams Director Of Event Marketing Relationship Specialty Start Date End Date Maximiliano Garcia MD [address] [place] [id number] PCP - General Internal Medicine 02/06/16
[2025-07-10 13:19] LABS: MANUAL DIFF FLAG NO
[2025-07-10 13:33] LABS: Hematocrit 45.6 % (37.0-47.0); Hemoglobin 14.7 g/dl (12.0-16.0); Imm Gran Abs Auto 0.05 X10*3/uL (0.00-0.03); Imm Gran Pct Auto 0.5 % (0.0-0.4); Lymphocytes Absolute Auto 2.4 X10*3/uL (1.2-4.9); Mean Corpuscular HGB Conc 32.2 g/dl (31.0-35.0); Mean Corpuscular Hemoglobin 30.8 pg (27.0-33.0); Mean Corpuscular Volume 95.4 fL (80.0-98.0); NRBC Abs Auto 0.000 X10*3/uL (0.0-0.012); NRBC Pct Auto 0.0 /100WBC (0.0-0.2); Platelet Count 260 X10*3/uL (160-400); Red Blood Count 4.78 X10*6/uL (4.20-5.50); White Blood Count 9.5 X10*3/uL (4.8-10.8)
[2025-07-10 14:07] LABS: Alanine Aminotransferase 17 U/L (0-31); Albumin Level 4.2 g/dL (3.5-5.0); Alkaline Phosphatase 77 U/L (39-117); Anion Gap 13 (12-20); Aspartate Amino Transferase 27 U/L (5-31); Blood Urea Nitrogen 15 mg/dL (9-16); Calcium 9.2 mg/dL (8.4-10.2); Carbon Dioxide 27 mmol/L (22-29); Chloride 106 mmol/L (96-108); Cholesterol 212 mg/dL (<200); Estimated Glomerular Filt Rate > 60; HDL Cholesterol 48 mg/dL (>40); Potassium 4.8 mmol/L (3.3-5.1); Sodium 141 mmol/L (135-145); Total Protein 7.1 g/dL (6.5-8.0); Triglycerides 239 mg/dL (<150)
== END 2025-07-10 10:19 | disposition home or self-care (01) ==
LOC: HO.HMGCLDS 10:18
PROVIDERS: PCP Internal Medicine; Visit Provider Internal Medicine
DX: Z00.01 Encounter for general adult medical examination with abnormal findings (principal); M17.12 Unilateral primary osteoarthritis, left knee; R73.01 Impaired fasting glucose; G56.22 Lesion of ulnar nerve, left upper limb; E78.9 Disorder of lipoprotein metabolism, unspecified; E66.09 Other obesity due to excess calories; Z68.33 Body mass index [BMI] 33.0-33.9, adult
CPT/HCPCS: 36415; 80053; 80061; 83036; 85025